=== PATIENT | female | born 1985 | race Caucasian/White ===

== ENCOUNTER 2019-02-08 10:11 | Emergency (ER) | payer BC, OTHER ==
[~2019-02-08] VITALS: Ht 165 cm; Wt 114.5 kg
[~2019-02-08 10:11] MED LIST: AMLO10TA7 PO
--- NOTE | 2019-02-08 11:21 | ED General ---
General Chief Complaint: General Problems/Pain Stated Complaint: LOWER BACK AND ABD PAIN Nursing Triage Note: PT TO RM 9 BY WHEELCHAIR WITH COMPLAINT OF LOW BACK/ ABD PAIN, DIZZINESS, VOMTING, AND DIARRHEA. STATES WENT TO URGENT CARE YESTERDAY ADN TOLD HAD POSSIBLE VIRAL ILLNESS. PT WAS ALSO PUT ON AMLODIPINE MEDICINE DUE TO HTN. Nursing Sepsis Screen: No Definite Risk Source of Information: Patient Exam Limitations: No Limitations History of Present Illness Date Seen by Provider: Feb 08, 2019 Time Seen by Provider: 11:21 Initial Comments 33-year-old female who presents to the emergency room with complaints of nausea, vomiting, diarrhea low back pain that started 2 days ago. She was seen and evaluated by urgent care in [place] yesterday and was told she had a viral illness. They also started her on amlodipine due to her hypertension. She reports that throughout the night she has had increased nausea vomiting diarr hea. She denies fevers. Timing/Duration: 2-3 Days Associated Systoms: Nausea/Vomiting Allergies and Home Medications Allergies Coded Allergies: latex (Verified Allergy, Mild, 11/02/15) orange (Verified Allergy, Mild, 11/02/15) Home Medications Amlodipine Besylate 10 Mg Tablet, 5 MG PO DAILY, (Reported) TAKES 1/2 OF A (10 MG) TABLET Ondansetron 4 Mg Tab.rapdis, 4 MG PO Q4H PRN for NAUSEA/VOMITING-1ST LINE Prescribed by: ANTONELLA FANG on 02/08/19 1321 Patient Home Medication List Home Medication List Reviewed: Yes Review of Systems Review of Systems Constitutional: see HPI; No chills, No fever Gastrointestinal: see HPI, abdominal pain, diarrhea, nausea, vomiting All Other Systems Reviewed Negative Unless Noted: Yes Past Pxnllmg-Umymcr-Gnegdi Hx Past Med/Social Hx: Reviewed Nursing Past Med/Soc Hx Patient Social History Alcohol Use: Denies Use Recreational Drug Use: No Smoking Status: Never a Smoker Recent Foreign Travel: No Contact w/Someone Who Travel: No Recent Infectious Disease Expo: No Recent Hopitalizations: No Immunizations Up To Date Tetanus Booster (TDap): Unknown PED Vaccines UTD: No Date of Influenza Vaccine: Feb 13, 2015 Seasonal Allergies Seasonal Allergies: No Past Medical History Surgeries: Yes (ERCP) Section Respiratory: No Currently Using CPAP: No Currently Using BIPAP: No Cardiac: Yes (recurrent episodes of near syncope and syncope) Hypertension Neurological: No Reproductive Disorders: Yes (HELLP syndrome) Female Reproductive Disorders: Menstrual Problems Sexually Transmitted Disease: No HIV/AIDS: No Gastrointestinal: No Musculoskeletal: No Endocrine: Yes (HASHIMOTOS) Hypothyroidsim Loss of Vision: Denies Hearing Impairment: Denies Cancer: No Psychosocial: No Integumentary: No Blood Disorders: Yes (HELLP syndrome) Adverse Reaction/Blood Tranf: No Family Medical History Reviewed Nursing Family Hx Patient reports no known family medical history. No Pertinent Family Hx Physical Exam Vital Signs Vital Signs - First Documented 02/08/19 10:14 Temp 36.7 Pulse 95 Resp 20 B/P (MAP) 142/112 (122) Pulse Ox 99 O2 Delivery Room Air Capillary Refill : Less Than 3 Seconds Height, Weight, BMI Height: 5'5.00" Weight: 234lbs. 0.0oz. 106.751827bj; 42.00 BMI Method:Stated General Appearance: No Apparent Distress, WD/WN HEENT: PERRL/EOMI, TMs Normal, Normal ENT Inspection, Pharynx Normal Neck: Full Range of Motion, Normal Inspection, Non Tender, Supple, Carotid Bruit Respiratory: Chest Non Tender, Lungs Clear, Normal Breath Sounds, No Accessory Muscle Use, No Respiratory Distress Cardiovascular: Regular Rate, Rhythm, No Edema, No Gallop, No JVD, No Murmur, Normal Peripheral Pulses Gastrointestinal: Normal Bowel Sounds, No Organomegaly, No Pulsatile Mass, Non Tender, Soft Extremity: Normal Capillary Refill Neurologic/Psychiatric: Alert, Oriented x3, Normal Mood/Affect Skin: Normal Color, Warm/Dry Progress/Results/Core Measures Suspected Sepsis Recent Fever Within 48 Hours: No Infection Criteria Present: None New/Unexplained Altered Menta: No Sepsis Screen: No Definite Risk SIRS Temperature: Pulse: 95 Respiratory Rate: 20 Laboratory Tests 02/08/19 12:08: White Blood Count 5.1 Blood Pressure 142 /112 Mean: 122 Laboratory Tests 02/08/19 12:08: Creatinine 0.73, Platelet Count 153, Total Bilirubin 0.5 Results/Orders Lab Results Laboratory Tests Test 02/08/19 10:26 02/08/19 12:08 Range/Units Urine Color MARÍA H Urine Clarity CLEAR Urine pH 6.0 5-9 Urine Specific Leopold 1.025 H 1.016-1.022 Urine Protein 1+ H NEGATIVE Urine Glucose (UA) NEGATIVE NEGATIVE Urine Ketones 1+ H NEGATIVE Urine Nitrite NEGATIVE NEGATIVE Urine Bilirubin 1+ H NEGATIVE Urine Urobilinogen 0.2 < = 1.0 MG/DL Urine Leukocyte Esterase NEGATIVE NEGATIVE Urine RBC (Auto) NEGATIVE NEGATIVE Urine RBC NONE /HPF Urine WBC 2-5 /HPF Urine Squamous Epithelial Cells 10-25 H /HPF Urine Crystals PRESENT H /LPF Urine Amorphous Sediment RARE MACHO URATES H /LPF Urine Bacteria TRACE /HPF Urine Casts NONE /LPF Urine Mucus LARGE H /LPF Urine Culture Indicated YES White Blood Count 5.1 4.3-11.0 10^3/uL Red Blood Count 4.73 4.35-5.85 10^6/uL Hemoglobin 13.2 11.5-16.0 G/DL Hematocrit 39 35-52 % Mean Corpuscular Volume 82 80-99 FL Mean Corpuscular Hemoglobin 28 25-34 PG Mean Corpuscular Hemoglobin Concent 34 32-36 G/DL Red Cell Distribution Width 13.4 10.0-14.5 % Platelet Count 153 130-400 10^3/uL Mean Platelet Volume 10.9 H 7.4-10.4 FL Neutrophils (%) (Auto) 86 H 42-75 % Lymphocytes (%) (Auto) 11 L 12-44 % Monocytes (%) (Auto) 4 0-12 % Eosinophils (%) (Auto) 0 0-10 % Basophils (%) (Auto) 0 0-10 % Neutrophils # (Auto) 4.3 1.8-7.8 X 10^3 Lymphocytes # (Auto) 0.5 L 1.0-4.0 X 10^3 Monocytes # (Auto) 0.2 0.0-1.0 X 10^3 Eosinophils # (Auto) 0.0 0.0-0.3 10^3/uL Basophils # (Auto) 0.0 0.0-0.1 10^3/uL Sodium Level 135 135-145 MMOL/L Potassium Level 2.8 L 3.6-5.0 MMOL/L Chloride Level 96 L 98-107 MMOL/L Carbon Dioxide Level 27 21-32 MMOL/L Anion Gap 12 5-14 MMOL/L Blood Urea Nitrogen 9 7-18 MG/DL Creatinine 0.73 0.60-1.30 MG/DL Estimat Glomerular Filtration Rate > 60 BUN/Creatinine Ratio 12 Glucose Level 120 H 70-105 MG/DL Calcium Level 9.2 8.5-10.1 MG/DL Corrected Calcium 9.0 8.5-10.1 MG/DL Total Bilirubin 0.5 0.1-1.0 MG/DL Aspartate Amino Transf (AST/SGOT) 34 5-34 U/L Alanine Aminotransferase (ALT/SGPT) 28 0-55 U/L Alkaline Phosphatase 69 40-136 U/L Total Protein 7.6 6.4-8.2 GM/DL Albumin 4.2 3.2-4.5 GM/DL Amylase Level 49 25-125 U/L Lipase 19 8-78 U/L My Orders Orders - ANTONELLA FANG Comprehensive Metabolic Panel (02/08/19 11:19) Lipase (02/08/19 11:19) Amylase (02/08/19 11:19) Ua Culture If Indicated (02/08/19 11:19) Ed Iv/Invasive Line Start (02/08/19 11:19) Cbc With Automated Diff (02/08/19 11:19) Ns Iv 1000 Ml (Sodium Chloride 0.9%) (02/08/19 11:30) Ondansetron Injection (Zofran Injectio (02/08/19 11:30) Urine Culture (02/08/19 10:26) Potassium Chloride (Tablet) (K Dur Table (02/08/19 13:15) Acetaminophen Tablet (Tylenol Tablet) (02/08/19 13:15) Ns Iv 1000 Ml (Sodium Chloride 0.9%) (02/08/19 13:30) Clonidine Tablet (Catapres Tablet) (02/08/19 14:15) Medications Given in ED Current Medications Medications Dose Ordered Sig/Suni Route Start Time Stop Time Status Last Admin Dose Admin Acetaminophen 1,000 mg ONCE ONCE PO 02/08/19 13:15 02/08/19 13:16 DC 02/08/19 13:16 1,000 MG Clonidine HCl 0.2 mg ONCE ONCE PO 02/08/19 14:15 02/08/19 14:16 DC 02/08/19 14:23 0.2 MG Ondansetron HCl 8 mg ONCE ONCE IVP 02/08/19 11:30 02/08/19 11:31 DC 02/08/19 13:16 8 MG Potassium Chloride 40 meq ONCE ONCE PO 02/08/19 13:15 02/08/19 13:16 DC 02/08/19 13:17 40 MEQ Vital Signs/I&O 02/08/19 15:47 Temp 36.7 Pulse 85 Resp 17 B/P (MAP) 132/78 (122) Pulse Ox 99 O2 Delivery Room Air Capillary Refill : Less Than 3 Seconds Blood Pressure Mean: 122 POS Progress Note : Time: 13:20 Progress Note I have seen and evaluated the patient. I've informed her of her laboratory findings and imaging studies. Her blood pressure has improved with the clonidine. She agrees with plan of care, plans for discharge, return precautions were given. Departure Impression Primary Impression: Viral gastroenteritis Additional Impression: Chronic hypokalemia Disposition: HOME, SELF-CARE Condition: Stable/Unchanged Departure-Patient Inst. Decision time for Depature: 13:20 Referrals: SHE SIBLEY DO (PCP/Family) Primary Care Physician Patient Instructions: High Potassium Diet, Viral Gastroenteritis, Adult (DC) Add. Discharge Instructions: Take medications as directed. Continue to use your potassium as previously prescribed by your primary care provider. You may use [id number]-uwmtuzn antidiarrheals like Imodium as directed per packaging. Drink plenty of fluids to stay hydrated. Tylenol Motrin for pain and fever. Return back to the emergency room for worsening symptoms or concerns as needed. All discharge instructions reviewed with patient and/or family. Voiced understanding. Scripts Ondansetron (Ondansetron Odt) 4 Mg Tab.rapdis 4 MG PO Q4H PRN for NAUSEA/VOMITING-1ST LINE, #14 TAB Prov: ANTONELLA FANG 02/08/19 ANTONELLA FANG Feb 08, 2019 11:21 POS
[2019-02-08] MEDS ORDERED: NS IV 1000 ML 1,000 ML IV SCH ×2 (11:30→13:30)
[2019-02-08] MEDS ORDERED: ONDANSETRON 4 MG/2 ML (SDV) Z0FRAN IVP ONE (11:30)
[2019-02-08 12:20] LABS: BASOPHILS % (AUTO) 0 % (0-10); EOSINOPHILS % (AUTO) 0 % (0-10); HEMATOCRIT 39 % (35-52); HEMOGLOBIN 13.2 G/DL (11.5-16.0); LYMPHOCYTES # (AUTO) 0.5 X 10^3 (1.0-4.0); LYMPHOCYTES % (AUTO) 11 % (12-44); MEAN CORPUSCULAR HEMOGLOBIN 28 PG (25-34); MEAN CORPUSCULAR HGB CONC 34 G/DL (32-36); MEAN CORPUSCULAR VOLUME 82 FL (80-99); MEAN PLATELET VOLUME 10.9 FL (7.4-10.4); MONOCYTES # (AUTO) 0.2 X 10^3 (0.0-1.0); MONOCYTES % (AUTO) 4 % (0-12); NEUTROPHILS # (AUTO) 4.3 X 10^3 (1.8-7.8); NEUTROPHILS % (AUTO) 86 % (42-75); PLATELET COUNT 153 10^3/uL (130-400); RED CELL DISTRIBUTION WIDTH 13.4 % (10.0-14.5); WHITE BLOOD COUNT 5.1 10^3/uL (4.3-11.0)
[2019-02-08 12:30] LABS: CLARITY,URINE CLEAR; COLOR,URINE AMBER; GLUCOSE, URINE (UA) NEGATIVE (NEGATIVE); KETONES,URINE 1+ (NEGATIVE); LEUKOCYTE ESTERASE ,URINE NEGATIVE (NEGATIVE); NITRITE,URINE NEGATIVE (NEGATIVE); PROTEIN,URINE 1+ (NEGATIVE)
[2019-02-08 12:32] LABS: ALANINE AMINOTRANSFERASE 28 U/L (0-55); ALBUMIN 4.2 GM/DL (3.2-4.5); ALKALINE PHOSPHATASE 69 U/L (40-136); AMYLASE 49 U/L (25-125); BILIRUBIN,TOTAL 0.5 MG/DL (0.1-1.0); BUN/CREATININE RATIO 12; CALCIUM 9.2 MG/DL (8.5-10.1); CARBON DIOXIDE 27 MMOL/L (21-32); CHLORIDE 96 MMOL/L (98-107); CREATININE SERUM 0.73 MG/DL (0.60-1.30); GFR ESTIMATED > 60; GLUCOSE 120 MG/DL (70-105); LIPASE 19 U/L (8-78); POTASSIUM 2.8 MMOL/L (3.6-5.0); SODIUM 135 MMOL/L (135-145); TOTAL PROTEIN 7.6 GM/DL (6.4-8.2)
[2019-02-08 13:03] LABS: BACTERIA,URINE TRACE /HPF; BILIRUBIN,URINE 1+ (NEGATIVE)
[2019-02-08 13:04] LABS: AMORPHOUS SEDIMENT,UR RARE AMOR URATES /LPF
[2019-02-08] MEDS ORDERED: ACETAMINOPHEN 500 MG TAB (TYLENOL) PO ONE (13:15)
[2019-02-08] MEDS ORDERED: KCL 20 MEQ TAB (K-DUR) PO ONE (13:15)
[2019-02-08] MEDS ORDERED: ONDA4TAB11 PO (13:21)
[2019-02-08] MEDS ORDERED: cloNIDine 0.2 MG (CATAPRES) TAB PO ONE (14:15)
[2019-02-08 15:47] VITALS: BP 132/78
--- OUTSIDE RECORDS SUMMARY | 2019-03-06 08:12 | XMS REPORT | Continuity of Care Document ---
Author Author Karma [facility] Maritza zuluaga Address Unknown Phone Unavailable Care Team Providers Care Sealer Operator Name Role Phone Ector DUFF, Pita VÁSQUEZ Unavailable Holland DUFF, Jaycee VÁSQUEZ Unavailable Debbie Benavides PP Unavailable Holland DUFF, Jaycee BUI Unavailable Ector DUFF, Pita BUI Unavailable Payers Payer name Insurance type Covered green party ID Authorization(s ) BCBS Preferred Care [place] [facility] E GP [id number] Problems Condition Effective Dates (start - stop) Clinical Status Hypothyroidism - Chronic lymphocytic thyroiditis - Fatigue / Malaise - Amenorrhea - Syncope - Syncope - Family History Family Member Diagnosis Age At Onset Status Sister SIDS Yes Paternal Grandmother Hypertension Yes Paternal Grandmother Diabetes I Yes Social History Type Description Quantity Date Unknown Allergies, Adverse Reactions, Alerts Substance Reaction Severity Status Unknown Medications Medication Instructions Dosage Effective Dates (start - stop) Sta s Comments Synthroid 50 mcg tablet take 2 tablet by oral route every day 1 00 MCG - Active Misc Drug Masterzyme 1 tab TID - Active Misc Drug Fibrovan 1 tab po TID - Active potassium 99 mg tablet take 1 Tablet by Oral route every day - Active MAGNESIUM (unknown strength) 500mg - Active Misc Drug diatomaceous earth (parasite) - Active Immunizations Vaccine Date Status Comments Unknown Results Test Name Date and Time Measure Units Reference Range Abnormal F lag Comments Unknown Vital Signs Date / Time: Height Weight BMI Pulse Rate Blood Pressure Temperatu re Respiratory Rate Body Surface Area Head Circumference BMI percentile Unknown Procedures Procedure Date ECG monitor/record, 24 hrs (holter Recording) 014 ECG monitor/review, 24 hrs Encounters Encounter Practice Location Reason(s) For Visit Diagnoses Date Unknown [facility] [place], [address] [place], [address] [facility] Unknown [facility] Marit[place], [address] [place], [address] [facility] [place] Unknown [facility] [place], [address] [place], [address] [facility] [place] Unknown [facility] Maritza margareth, [address] [place], [address] Endocrinology And Diabetes Hypothyroi dismChronic lymphocytic thyroiditisFatigue / MalaiseAmenorrhea Unknown [facility] [place], [address] [place], [address] Endocrinology And Diabetes Advance Directives Directive Yes / No Effective Date File Name Unknown WARNING:The information contained in this section is historical and is provided for information only and does not constitute a legal document or any assurance t hat the information is still accurate. Please verify the information with the ho lder of the legal document before using it for clinical purposes.
--- OUTSIDE RECORDS SUMMARY | 2019-03-06 08:12 | XMS REPORT | Continuity of Care Document ---
Author Author Karma [facility] Address Unknown Phone Unavailable Care Team Providers Care Credit Support Specialist Name Role Phone Ector DUFF, Pita VÁSQUEZ Unavailable Debbie Benavides PP Unavailable Holland DUFF, Jaycee VÁSQUEZ Unavailable Ector DUFF, Pita RP Unavailable Holland DUFF, Jaycee BUI Unavailable Payers Payer name Insurance type Covered democrat ID Authorization(s ) BCBS Preferred Care [place] [facility] E GP [id number] Problems Condition Effective Dates (start - stop) Clinical Status Hypothyroidism - Chronic lymphocytic thyroiditis - Fatigue / Malaise - Amenorrhea - Syncope - Syncope - Family History Family Member Diagnosis Age At Onset Status Sister SIDS Yes Paternal Grandmother Hypertension Yes Paternal Grandmother Diabetes I Yes Social History Type Description Quantity Date Smoking Status Never smoker packs per day Allergies, Adverse Reactions, Alerts Substance Reaction Severity Status Unknown Medications Medication Instructions Dosage Effective Dates (start - stop) Sta tu Comments Synthroid 50 mcg tablet take 2 tablet by oral route every day 1 00 MCG - Active Misc Drug diatomaceous earth (parasite) - Active MAGNESIUM (unknown strength) 500mg - Active Misc Drug Masterzyme 1 tab TID - Active Misc Drug Fibrovan 1 tab po TID - Active potassium 99 mg tablet take 1 Tablet by Oral route every day - Active Synthroid 100 mcg tablet take 1 tablet by oral route every day 100 MCG - No Longer Active Immunizations Vaccine Date Status Comments Unknown Results Test Name Date and Time Measure Units Reference Range Abnormal F lag Comments Unknown Vital Signs Date / Time: Height Weight BMI Pulse Rate Blood Pressure Temperatu re Respiratory Rate Body Surface Area Head Circumference BMI percentile /10:14:00 65.00 in 273.00 lbs 45.42 76 /min 138/90 mm[Hg] Procedures Procedure Date Office consultation Encounters Encounter Practice Location Reason(s) For Visit Diagnoses Date [facility] [facility], [address] [place], [address] Endocrinology And Diabetes (chief complaint) HypothyroidismChronic lymphocytic thyroiditisFatigue / MalaiseAmenorrhea Unknown [facility] Abena zuluaga, [address] [place], [address] [facility] [place] [facility], [address] [place], [address] [facility] [place] Unknown [facility] Abena zuluaga, [address] [place], [address] Endocrinology And Diabetes Advance Directives Directive Yes [...]
--- OUTSIDE RECORDS SUMMARY | 2019-03-06 08:12 | XMS REPORT | Continuity of Care Document ---
Author Author Karma Arzate Organization [facility] Abena zuluaga Address [address] [place] [address] Phone Care Team Providers Care Photographic Process Attendant Name Role Phone Ector DUFF, Pita VÁSQUEZ Unavailable Debbie Benavides PP Unavailable Holland DUFF, Jaycee VÁSQUEZ Unavailable Holland DUFF, Jaycee BUI Unavailable Ector DUFF, Pita BUI Unavailable Payers Payer name Insurance type Covered alliance party ID Authorization(s ) BCBS Preferred Care [place] [facility] [employer] E GP [id number] Problems Condition Effective Dates (start - stop) [...] Dosage Effective Dates (start - stop) Sta tus Comments Synthroid 50 mcg tablet take 2 [...] Circumference BMI percentile Unknown Procedures Procedure Date Unknown Encounters Encounter Practice Location Reason(s) For Visit Diagnoses Date Unknown [facility] Abena zuluaga, [address] [place], [address] Endocrinology And Diabetes Unknown [facility] Maritza [place]ulu[place], [address] [facility], [place], [address] [facility] [place] Unknown [facility] Maritza zuluaga, [address] [place], [address] [facility] [place] Unknown [facility] Maritza margareth, [address] [place], [address] Endocrinology And Diabetes Hypothyroi dismChronic lymphocytic thyroiditisFatigue / MalaiseAmenorrhea Unknown [facility] Maritza zuluaga, [address] [place], [address] Endocrinology And Diabetes Advance Directives Directive Yes [...]
--- OUTSIDE RECORDS SUMMARY | 2019-03-06 08:12 | XMS REPORT | Continuity of Care Document ---
Author Author Karma [facility]ro [facility] [place] Address Unknown Phone Unavailable Care Team Providers Care Pegger Dobby Looms Name Role Phone Ector DUFF, Pita VÁSQUEZ Unavailable Holland DUFF, Jaycee VÁSQUEZ Unavailable Debbie Benavides PP Unavailable Holland DUFF, Jaycee BUI Unavailable Ector DUFF, Pita BUI Unavailable Payers Payer name Insurance type Covered green party ID Authorization(s ) BCBS Preferred Care [place] Or [employer] E GP [id number] Problems Condition Effective Dates (start - stop) Clinical Status Hypothyroidism - Chronic lymphocytic thyroiditis - Fatigue / Malaise - Amenorrhea - Syncope - Syncope - Family History Family Member Diagnosis Age At Onset Status Sister SIDS Yes Paternal Grandmother Hypertension Yes Paternal Grandmother Diabetes I Yes Social History Type Description Quantity Date Coffee Allergies, Adverse Reactions, Alerts Substance Reaction Severity Status Unknown Medications Medication Instructions Dosage Effective Dates (start - stop) Sta tus Comments Synthroid 50 mcg tablet take 2 tablet by oral route every day 1 00 MCG - Active potassium 99 mg tablet take 1 Tablet by Oral route every day - Active Misc Drug Masterzyme 1 tab TID - Active Misc Drug Fibrovan 1 tab po TID - Active MAGNESIUM (unknown strength) 500mg - Active Misc Drug diatomaceous earth (parasite) - Active Immunizations Vaccine Date Status Comments Unknown Results Test Name Date and Time Measure Units Reference Range Abnormal F lag Comments Unknown Vital Signs Date / Time: Height Weight BMI Pulse Rate Blood Pressure Temperatu re Respiratory Rate Body Surface Area Head Circumference BMI percentile /14:55:00 65.00 in 68 /min 130/98 mm[Hg] Procedures Procedure Date OFFICE/OUTPATIENT VISIT, EST Encounters Encounter Practice Location Reason(s) For Visit Diagnoses Date OFFICE/OUTPATIENT VISIT, EST [facility], [address] [facility], [place], [address] [facility] [place] Unknown [facility] [place]aga, [address] [facility], [place], [address] [facility] [place] Unknown [facility] Mar[place] zuluaga, [address] [place], [address] Endocrinology And Diabetes Hypothyroi dismChronic lymphocytic thyroiditisFatigue / MalaiseAmenorrhea Unknown [facility] Mar[place]ulu[place], [address] [place], [address] Endocrinology And Diabetes Advance Directives Directive Yes [...]
--- OUTSIDE RECORDS SUMMARY | 2019-03-06 08:12 | XMS REPORT | Continuity of Care Document ---
Author Author Karma Lino [facility] Mar[place] zuluaga Address [address] [address] Phone Care Team Providers Care Platinum Smith Name Role Phone Ector DUFF, Pita VÁSQUEZ Unavailable Holland DUFF, Jaycee VÁSQUEZ Unavailable Holland DUFF, Jaycee BUI Unavailable Payers Payer name Insurance type Covered alliance party ID Authorization(s ) BCBS Preferred Care [place] Or [employer] E GP [id number] Problems Condition Effective Dates (start - stop) Clinical Status Syncope - Syncope - Family History Family Member Diagnosis Age At Onset Status Sister SIDS Yes Paternal Grandmother Hypertension Yes Paternal Grandmother Diabetes I Yes Social History Type Description Quantity Date Unknown Allergies, Adverse Reactions, Alerts Substance Reaction Severity Status Unknown Medications Medication Instructions Dosage Effective Dates (start - stop) Sta tus Comments Misc Drug Masterzyme 1 tab TID - Active Misc Drug Fibrovan 1 tab po TID - Active potassium 99 mg tablet take 1 Tablet by Oral route every day - Active Immunizations Vaccine Date Status Comments Unknown Results Test Name Date and Time Measure Units Reference Range Abnormal F lag Comments Unknown Vital Signs Date / Time: Height Weight BMI Pulse Rate Blood Pressure Temperatu re Respiratory Rate Body Surface Area Head Circumference BMI percentile Unknown Procedures Procedure Date Unknown Encounters Encounter Practice Location Reason(s) For Visit Diagnoses Date Unknown [facility] [place]it[place] zuluaga, [address] [place], [address] [facility] Unknown [facility] Mar[place] zuluaga, [address] [place], [address] [facility] [place] Unknown [facility] Mar[place]za zuluaga, [address] [place], [address] [facility] [place] Advance Directives Directive Yes / No Effective [...]
--- OUTSIDE RECORDS SUMMARY | 2019-03-06 08:12 | XMS REPORT | Continuity of Care Document ---
Author Author Karma Oro [facility] Maritza zuluaga Address Unknown Phone Unavailable Care Team Providers Care Dye Winch Operator Name Role Phone Ector DUFF, Pita VÁSQUEZ Unavailable Holland DUFF, Jaycee VÁSQUEZ Unavailable Debbie Benavides PP Unavailable Holland DUFF, Jaycee BUI Unavailable Ector DUFF, Pita BUI Unavailable Payers Payer name Insurance type Covered democrat ID Authorization(s ) BCBS Preferred Care [place] Or Federal E GP [id number] Problems Condition Effective Dates (start - stop) [...] (start - stop) Sta tus Comments Synthroid 100 mcg tablet take 1 tablet by oral route every day 100 MCG - Active Misc Drug Masterzyme 1 [...] Location Reason(s) For Visit Diagnoses Date Unknown [facility] Maritza zuluaga, [address] [place], [address] [facility] Unknown [facility] Maritza margareth, [address] [place], [address] [facility] [place] Unknown [facility] Maritza margareth, [address] [place], [address] [facility] [place] Unknown [facility] Maritza margareth, [address] [place], [address] Endocrinology And Diabetes Hypothyroi dismChronic lymphocytic thyroiditisFatigue / MalaiseAmenorrhea Advance Directives Directive Yes / No Effective [...]
--- OUTSIDE RECORDS SUMMARY | 2019-03-06 08:12 | XMS REPORT | Continuity of Care Document ---
Author Author Karma Oro [facility] Maritza zuluaga Address Unknown Phone Unavailable Care Team Providers Care Production Tech Name Role Phone Ector DUFF, Pita VÁSQUEZ Unavailable Jeremiah DUFF, Joann PP Unavailable Holland DUFF, Jaycee VÁSQUEZ Unavailable BenavidesDebbie weiss PP Unavailable Jeremiah DUFF, Joann RP Unavailable Holland DUFF, Jaycee BUI Unavailable Ector DUFF, Pita BUI Unavailable Payers Payer name Insurance type Covered democrat ID Authorization(s ) BCBS Preferred Care [place] Or [facility] E GP [id number] Problems Condition Effective Dates (start - stop) [...] Circumference BMI percentile Unknown Procedures Procedure Date TTE W/DOPPLER, COMPLETE Encounters Encounter Practice Location Reason(s) For Visit Diagnoses Date Unknown [facility] Maritza zuluaga, [address] [place], [address] [facility] Unknown [facility] Maritza margareth, [address] [place], [address] [facility] [place] Unknown [facility] Maritza diggscolby, [address] [place], [address] [facility] [place] Unknown [facility] Maritza zuluaga, [address] [place], [address] Endocrinology And Diabetes Hypothyroi dismChronic lymphocytic thyroiditisFatigue / MalaiseAmenorrhea Unknown [facility] Maritza margareth, [address] [place], [address] Endocrinology And Diabetes Advance Directives Directive Yes [...]
--- OUTSIDE RECORDS SUMMARY | 2019-03-06 08:12 | XMS REPORT | Continuity of Care Document ---
Author Author [facility] Organization [facility] Address Unknown Phone Unavailable Care Team Providers Care President And Chief Operating Officer Name Role Phone Pita Barney MD PCP Unavailable Allergies, Adverse Reactions, Alerts Substance Reaction Severity Status Substance Type Unknown Medications Medication Instructions Dosage Effective Dates (start - stop) Sta tus Comments Misc Drug Chaste Tree Munoz 2 caps am - Acti ve potassium 99 mg tablet take 1 Tablet by Oral route every day Not A vailable - Active Misc Drug Fibrovan 1 tab po TID - Active Synthroid 50 mcg tablet take 2 tablet by oral route every day 1 00 MCG - No Longer Active Synthroid 100 mcg tablet take 1 tablet by oral route every day 100 MCG - No Longer Active potassium 99 mg tablet - No Longer Active Misc Drug diatomaceous earth (parasite) - No Longer Active MAGNESIUM (unknown strength) 500mg - No Longer Active Misc Drug Masterzyme 1 tab TID - No Longer A ctive Problems Condition Effective Dates (start - stop) Clinical Status Unknown Procedures Procedure Date ND New Patient Office consultation OFFICE/OUTPATIENT VISIT, EST TTE W/DOPPLER, COMPLETE ECG monitor/record, 24 hrs (holter Recording) 014 ECG monitor/review, 24 hrs Office/outpatient visit, new Results Test Name Date and Time Measure Units Reference Range Abnormal F lag Comments Unknown Advance Directives Directive Yes / No Effective Date File Name Resuscitation Not Answered N/A N/A Life Support Not Answered N/A N/A Intubation Not Answered N/A N/A Antibiotics Not Answered N/A N/A IV Fluid Support Not Answered N/A N/A Tube Feed Not Answered N/A N/A CPR Not Answered N/A N/A WARNING:The information contained in this section is historical and is provided for information only and does not constitute a legal document or any assurance t hat the information is still accurate. Please verify the information with the ho lder of the legal document before using it for clinical purposes. Encounters Encounter Description Practice Location Reason(s) For Visit Diagnose s Date Provider Care Team Members [facility] Maritza zuluaga, [address] [place] [address], [address] [place] [address] Holistic Care amenorrhea* (chief complaint)subclinicial hypothyroidism (chief complaint) Chronic lymphocytic thyroiditisAmenorrhea Jonathan Childs. [address] [place] [address], [facility], . tel:[phone] Referring Provider: Naz Castillo, [address] [place] [address], [facility]. tel:[phone] [facility] Abena zuluaga, [address] [place] [address], [address] [place] [address] Endocrinology And Diabetes Kennedy Lewis. [address] [place] [address], [facility], . tel:[phone] [facility] Abena zuluaga, [address] [place] [address], [address] [place] [address] Endocrinology And Diabetes Kennedy Lewis. [address] [place] [address], [facility], . tel:[phone] Office consultation [facility] Abena zuluaga, [address] [place] [address], [facility], [facility] Endocrinology And Diabetes hypothyroidism (chief complaint) HypothyroidismChronic lymphocytic thyroi ditisAmenorrheaFatigue / Malaise Kennedy Lewis. [address] [place] [address], [facility], . tel:[phone] Referring Provider: Pita Oropeza, [address], [id number]. tel:[phone] [facility] Maritza zuluaga, [address] [place] [address], [address], [facility] Apr Holland Champion. [address] [place] [address], [address], [place], [place], [facility], . tel:[phone] OFFICE/OUTPATIENT VISIT, [facility], [address] [place] [address], [address], [facility] [place] Holland Champion. [address], [address], [place], [place], [facility], . tel:[phone] Referring Provider: Jaycee Lino MD, [address] [place] [address] [address], [place], [place], [facility]. tel:[phone] [facility] Maritza zuluaga, [address] [place] [address], [address], [facility] Apr Jeremiah David. [address] [place] [address], [address], [place], [place], [facility], . tel:[phone] Referring Provider: Joann Daniels MD, [address] [place] [address] [address], [place], [place], [facility]. tel:[phone] [facility] Maritza zuluaga, [address] [place] [address], [address], [facility] Apr Holland Champion. [address] [place] [address], [address], [place], [facility], . tel:[phone] Referring Provider: Jaycee Lino MD, [address] [place] [address] [address], [place], [place], [facility]. tel:[phone] Office/outpatient visit, new [facility], [address] [place] [address], [address], [facility] [place] Holland Champion. [address] [place] [address], [address], [place], [facility], . tel:[phone] Referring Provider: Jaycee Lino MD, [address] [place] [address], [place], [address]. tel:[phone] Family History Family Member Diagnosis Age At Onset Sister Sudden infant syndrome Paternal Grandmother Hypertension Paternal Grandmother Diabetes I Immunizations Vaccine Date Status Comments Unknown Payers Payer name Insurance type Covered constitution party ID Authorization(s ) [facility] [id number] Social History Type Description Quantity Date Captured Alcohol Use Details No Caffeine Use Details No Tobacco Use Status Unknown Smoking Status Unknown Alcohol Use Details No Caffeine Use Details No Tobacco Use Status Unknown Smoking Status Never smoker Alcohol Use Details No Caffeine Use Details Coffee and Soda Tobacco Use Status Unknown Smoking Status Never smoker Alcohol Use Details No Caffeine Use Details Coffee and Soda Tobacco Use Status Unknown Smoking Status Unknown Vital Signs Date / Time: Height Weight BMI Pulse Rate Blood Pressure Temperatu re Respiratory Rate Body Surface Area Head Circumference BMI percentile /10:37:00 65.00 in 274.40 lbs 45.66 kg/meter(2) /10:14:00 65.00 in 273.00 lbs 45.42 kg/meter(2) 76 /min 138/90 mm[Hg] /14:55:00 65.00 in 68 /min 130/98 mm[Hg] /15:06:00 65.00 in 274.20 lbs 45.80 kg/meter(2) 110 /min 138/98 mm[Hg] /15:06:00 65.00 in 274.20 lbs 45.80 kg/meter(2) 110 /min 136/98 mm[Hg] Chief Complaint And Reason For Visit Most recent encounter only, dated '07/20/2013 11:30'. amenorrhea* (chief complaint). Description: breakfast: brynn, typically doesn 't eat breakfast, frequent meal skipper, doesn't snackLMP: 07/16/13, but prior didn't have one for 3 months. Very irregular her entire menstrual life. Started menses early, thinks it might be heavy, but has nothing to compare it too. Takes a supplement for pain, that helps. Stopped control in Oct 2012, with plans of trying for . Has not been successful since. She and her are very anxious to have children, but she wants to get healthy first. subclinicial hypothyroidism (chief complaint). Description: Was dx with subclin hypo in her teens, but was never officially treated. "I never went to the doctor", but had many episodes of syncope, which prompted the blood tests. ALso has struggled with weight loss. No matter how restricted she is, weight never changes. Anorexia in college, with no change in weight. Did paleo diet x 3 months about a year ago, no change in weight. Frustrated, and now at the point where her focus isn't weight loss, but rather overall health. Went to ER after a fainting episode, hypothyroid was dx'd. Dr. Ector VAIL pressed for her to started a medication, as she thinks it is the root of all her menstrual and fainting problems. Went to see Dr. Benavides, and as put on Synthroid. After 2 weeks of taking regularly, pulled herself off becasue of a drug reaction. Significant rash scaly rash on half of face, snake like skin, heart racing, hot flashes. Discussed this with Dr. Benavides, and was told to just keep taking the medication. Didn't feel like the doctor was liste Reason For Referral Reason For Referral Unknown Plan Of Care Date Type Action Status Future Order: Lab Order T4, FREE (CPT [id number]) (86 6) Ordered Future Order: Lab Order TSH, 3RD GENERATION (CPT 44992) (899) Ordered Date Type Problem Goal Intervention Status Start D ate Unknown. History Of Present Illness Encounter Date Complaint History Of Present I llness subclinicial hypothyroidism Was dx with subclin hypo in her teens, but was never officially treated. "I never went to the doctor", but had many episodes of syncope, which prompted the blood tests. ALso has struggled with weight loss. No matter how restricted she is, weight never changes. Anorexia in college, with no change in weight. Did paleo diet x 3 months about a year ago, no change in weight. Frustrated, and now at the point where her focus isn't weight loss, but rather overall health. Went to ER after a fainting episode, hypothyroid was dx'd. OBGYN, Dr. Barney pressed for her to started a medication, as she thinks it is the root of all her menstrual and fainting problems. Went to see Dr. Benavides, and as put on Synthroid. After 2 weeks of taking regularly, pulled herself off becasue of a drug reaction. Significant rash scaly rash on half of face, snake like skin, heart racing, hot flashes. Discussed this with Dr. Benavides, and was told to just keep taking the medication. Didn't feel like the doctor was... amenorrhea* breakfast: brynn, typically doesn't eat breakfast, frequent meal skipper, doesn't snackLMP: 07/16/13, but prior didn't have one for 3 months. Very irregular her entire menstrual life. Started menses early, thinks it might be heavy, but has nothing to compare it too. Takes a supplement for pain, that helps. Stopped control in Oct 2012, with plans of trying for . Has not been successful since. She and her are very anxious to have children, but she wants to get healthy first. hypothyroidism (comments) referred to us by Dr Pita Barney for subclinical hypothyroidism, no family h/o hypothyroidiism, pls refer to scanned history sheet for detailed PMH, PSH, social and family history hypothyroidism The hypothyroidism s tarted in 2013. The symptoms began gradually. The severity has been described as being mild. It is currently a new diagnosis. Risk factors include fatigue, Hashimotos Disease and weight gain. Associated symptoms include fatigue and weight gain. Pertinent negatives include anorexia, cold intolerance, constipation, depression, dry skin, dysphagia, forgetfulness, hair loss, hoarseness, proximal muscle weakness, anxiety, diarrhea, goiter, heat intolerance, increased appetite, insomnia, palpitations, SOB, tremor and weight loss. Functional Status Encounter Date Functional Assessment Cognitive Assessme nt N/A Orientation - [place] ed to time, place, person, situation. N/A Orientation - [place] ed to time, place, person, situation. Medications Administered Medication Instructions Dosage Effective Dates (start - stop) Sta tus Comments Drug Treatment Unknown Instructions Date Instruction Additional Informati on Unknown
--- OUTSIDE RECORDS SUMMARY | 2019-03-06 08:12 | XMS REPORT | Continuity of Care Document ---
Author Author Karma Oro [facility] Maritza zuluaga Address Unknown Phone Unavailable Care Team Providers Care Fingernail Sculptor Name Role Phone Ector DUFF, Pita VÁSQUEZ Unavailable Holland DUFF, Jaycee VÁSQUEZ Unavailable Holland DUFF, Jaycee BUI Unavailable Payers Payer name Insurance type Covered republican ID Authorization(s ) BCBS Preferred Care [place] Or [facility] E GP [id number] Problems Condition Effective Dates (start - stop) [...] Body Surface Area Head Circumference BMI percentile /:06:00 65.00 in 274.20 lbs 45.80 110 /min 138/98 mm[Hg] /:06:00 65.00 in 274.20 lbs 45.80 110 /min 136/98 mm[Hg] Procedures Procedure Date Office/outpatient visit, new Encounters Encounter Practice Location Reason(s) For Visit Diagnoses Date Office/outpatient visit, [facility], [address] [place], [address] [facility] [place] Unknown [facility] Abena zuluaga, [address] [place], [address] [facility] [place] Advance Directives Directive Yes [...]
--- OUTSIDE RECORDS SUMMARY | 2019-03-06 08:13 | XMS REPORT ---
Author Author Karma DOWLING [facility] eClinicalWorks Address Unknown Phone Unavailable Care Team Providers Care Polishing Machine Operator Helper Name Role Phone CLIFTON DOWLING Unavailable Allergies No Known Allergies Problems Problem Type Condition Code Onset Dates Condition Statu s Problem General counseling for prescription of oral contracept brandi V25.01 Active Problem Screening for malignant neoplasm of the cervix V76.2 Active Problem Candidiasis of vulva and vagina 112.1 Active Assessment screening encounter Z36 Active Medications No Known Medications Procedures Procedure Coding System Code Date Office Visit, Est Pt., Level 3 CPT-4 73790 D 2014 Results No Known Results Summary Purpose eClinicalWorks Submission
--- OUTSIDE RECORDS SUMMARY | 2019-03-06 08:13 | XMS REPORT | Continuity of Care Document ---
Author Organization Unknown Address Unknown Phone Unavailable Allergies Active Description Code Type Severity Reaction Onset Reported/Identified Relationship to Patient Clinical Status Yes latex [id number] Drug Allergy Mild N/A 11/02/2015 Yes orange [id number] Drug Allergy Mild N/A 11/02/2015 Medications There is no data. Problems Date Dx Coded Attending Type Code Diagnosis Diagnosed By 02/20/2015 ADY STEEN DO Ot E66.01 02/20/2015 BRIANMERLIN ADY MONTENEGRO S Ot O99.210 02/20/2015 BRIANMERLIN DO ADY S Ot Z3A.00 02/20/2015 BRIANMERLIN MONTENEGROADY S Ot Z68.42 03/03/2015 BRIANMERLIN ADY MONTENEGRO S Ot E03.9 03/03/2015 FENMERLIN MONTENEGROADY S Ot E66.01 03/03/2015 FENECH ADY MONTENEGRO S Ot O14.23 03/03/2015 FENECH DO ADY S Ot O15.03 03/03/2015 BRIANMERLIN MONTENEGROADY S Ot O99.213 03/03/2015 BRIANECH ADY S Ot O99.283 03/03/2015 BRIANECH ADY S Ot Z3A.28 03/03/2015 BRIANMERLIN ADY MONTENEGRO S Ot Z68.42 07/13/2015 WILLY DUFF, MIRTA Grant Ot E07.9 DISORDER OF THYROID, UNSPECIFIED 07/13/2015 WILLY DUFF, MIRTA Grant Ot E87.6 HYPOKALEMIA 07/13/2015 WILLY DUFF, MIRTA Grant Ot R55 SYNCOPE AND COLLAPSE 11/03/2015 MINE OLSEN DO Ot 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 20 CALCULUS OF GALLBLADDER W/O CHOLECYSTITI 11/03/2015 MINE OLSEN DO Ot R10. 11 RIGHT UPPER QUADRANT PAIN 11/03/2015 MINE OLSEN DO Ot R11. 0 NAUSEA 11/03/2015 RAÚL MONTENEGROMINE Ot R74. 0 NONSPEC ELEV OF LEVELS OF TRANSAMNS LA 11/03[facility] OTHER DISORDERS OF BILIRUBIN METABOLISM 11/03/2015 [facility]. 20 CALCULUS OF GALLBLADDER W/O CHOLECYSTITI 11/03/2015 [facility]10. 11 RIGHT UPPER QUADRANT PAIN 11/03/2015 [facility]. 0 NAUSEA 11/03/2015 [facility] R74. 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 9 VIRAL MENINGITIS, UNSPECIFIED 02/11/2019 JEZ ELIAS MD Ot E03. 9 HYPOTHYROIDISM, UNSPECIFIED 02/11/2019 JEZ ELIAS MD Ot E06. 3 AUTOIMMUNE THYROIDITIS 02/11/2019 JEZ ELIAS MD Ot E87. 6 HYPOKALEMIA 02/11/2019 JEZ ELIAS MD Ot I10 ESSENTIAL (PRIMARY) HYPERTENSION 02/11/2019 JEZ ELIAS MD Ot R74. 0 NONSPEC ELEV OF LEVELS OF TRANSAMNS LA 02/11/2019 JEZ ELIAS MD Ot Z79.891 PRESS SETUP OPERATOR (CURRENT) USE OF OPIATE ANALGE 02/11/2019 JEZ ELIAS MD, Ot Z79.899 OTHER PRESS SETUP OPERATOR (CURRENT) DRUG THERAPY 02/11/2019 JEZ ELIAS MD Ot Z91.018 ALLERGY TO OTHER FOODS 02/11/2019 JEZ ELIAS MD Ot Z91.040 LATEX ALLERGY STATUS 02/13/2019 BERNOT, ANTONELLA Ot A08.4 VIRAL INTESTINAL INFECTION, UNSPECIFIED 02/13/2019 BERNOT, ANTONELLA Ot E03.9 HYPOTHYROIDISM, UNSPECIFIED 02/13/2019 BERNOT, ANTONELLA Ot E87.6 HYPOKALEMIA 02/13/2019 BERNOT, ANTONELLA Ot I10 ESSENTIAL (PRIMARY) HYPERTENSION 02/13/2019 BERNOT, ANTONELLA Ot R10.9 UNSPECIFIED ABDOMINAL PAIN 02/13/2019 BERNOT, NATONELLA Ot Z91.040 LATEX ALLERGY STATUS Procedures There is no data. Results Test Result Range Complete urinalysis with reflex to cultu re - 11/02/15 07:38 Urine color determination YELLOW NRG Urine clarity determination SLIGHTLY CLOUDY NRG Urine pH measurement by test strip 8 5-9 Specific gravity of urine by test strip 1.010 1.016-1.022 Urine protein assay by test strip, semi-quantitative NEGATIVE NEGATIVE Urine glucose detection by automated test strip NE GATIVE NEGATIVE Erythrocytes detection in urine sediment by light micr oscopy NEGATIVE NEGATIVE Urine ketones detection by automated test strip 1+ NEGATIVE Urine nitrite detection by test strip NEGATIVE NEGATIVE Urine total bilirubin detection by test strip NEGA TIVE NEGATIVE Urine urobilinogen measurement by automated test strip (mass/volume) NORMAL NORMAL Urine leukocyte esterase detection by dipstick 1+ NEGATIVE Automated urine sediment erythrocyte cou nt by microscopy (number/high power field) NONE NRG Automated urine sediment leukocyte count by microscopy (number/high power field) NONE NRG Bacteria detection in urine sediment by light microsco py NEGATIVE NRG Squamous epithelial cells detection in u rine sediment by light microscopy RARE NRG Crystals detection in urine sediment by light microsco py NONE NRG Casts detection in urine sediment by light microscopy NONE NRG Mucus detection in urine sediment by light microscopy NEGATIVE NRG Complete urinalysis with reflex to culture NO NRG Amorphous sediment detection in urine sediment by [facility] t microscopy LARGE MACHO PHOSPHATE NRG Complete blood count (CBC) with automate d white blood cell (WBC) differential - 11/02/15 08:25 Blood leukocytes automated count (number/volume) 12.8 10*3/uL 4.3-11.0 Blood erythrocytes automated count (number/volume) 4.95 10*6/uL 4.35-5.85 Venous blood hemoglobin measurement (mass/volume) 13.4 g/dL 11.5-16.0 Blood hematocrit (volume fraction) 40 % 35-52 Automated erythrocyte mean corpuscular volume 81 [ foz_us] 80-99 Automated erythrocyte mean corpuscular h emoglobin (mass per erythrocyte) 27 pg 25-34 Automated erythrocyte mean corpuscular h emoglobin concentration measurement (mass/volume) 33 g/dL 32-36 Automated erythrocyte distribution width ratio 14. 9 % 10.0- 14.5 Automated blood platelet count (count/volume) 310 10*3/uL 130-400 Automated blood platelet mean volume measurement 11.1 [foz_us] 7.4-10.4 Automated blood neutrophils/100 leukocytes 86 % 42-75 Automated blood lymphocytes/100 leukocytes 9 % 12-44 Blood monocytes/100 leukocytes 5 % 0-12 Automated blood eosinophils/100 leukocytes 0 % 0-10 Automated blood basophils/100 leukocytes 0 % 0-10 Blood neutrophils automated count (number/volume) 11.0 10*3 1.8-7.8 Blood lymphocytes automated count (number/volume) 1.1 10*3 1.0-4.0 Blood monocytes automated count (number/volume) 0. 6 10*3 0.0-1.0 Automated eosinophil count 0.0 10*3/uL 0 .0-0.3 Automated blood basophil count (count/volume) 0.0 10*3/uL 0.0-0.1 Comprehensive metabolic panel - 11/02/15 08:25 Serum or plasma sodium measurement (moles/volume) 140 mmol/L 135-145 Serum or plasma potassium measurement (moles/volume) 3.3 mmol/L 3.6-5.0 Serum or plasma chloride measurement (moles/volume) 104 mmol/L 98-107 Carbon dioxide 24 mmol/L 21-32 Serum or plasma anion gap determination (moles/volume) 12 mmol/L 5-14 Serum or plasma urea nitrogen measurement (mass/volume ) 10 mg/dL 7-18 Serum or plasma creatinine measurement (mass/volume) 0.74 mg/dL 0.60-1.30 Serum or plasma urea nitrogen/creatinine mass ratio 14 NRG Serum or plasma creatinine measurement w ith calculation of estimated glomerular filtration rate > NRG Serum or plasma glucose measurement (mass/volume) 174 mg/dL 70-105 Serum or plasma calcium measurement (mass/volume) 8.9 mg/dL 8.5-10.1 Serum or plasma total bilirubin measurement (mass/volu me) 1.9 mg/dL 0.1-1.0 Serum or plasma alkaline phosphatase art surement (enzymatic activity/volume) 184 U/L 40-136 Serum or plasma aspartate aminotransfera se measurement (enzymatic activity/volume) 459 U/L 5-34 Serum or plasma alanine aminotransferase measurement (enzymatic activity/volume) 318 U/L 0-55 Serum or plasma protein measurement (mass/volume) 7.6 g/dL 6.4-8.2 Serum or plasma albumin measurement (mass/volume) 4.3 g/dL 3.2-4.5 Magnesium - 11/02/15 08:25 Magnesium 2.4 mg/dL 1.8-2.4 Lipase - 11/02/15 08:25 Lipase 20 U/L 8-78 THYROID STIMULATING HORMONE - 11/02/15 0 8:25 THYROID STIMULATING HORMONE 8.04 u[iU]/mL 0.35-4.94 Serum or plasma thyroxine (T4) free davion urement (mass/volume) - 11/02/15 08:25 Serum or plasma thyroxine (T4) free measurement (mass/ volume) 0.79 ng/dL 0.70-1.48 Bilirubin direct - 11/02/15 08:25 Bilirubin direct 1.1 mg/dL 0.0-0.3 Serum or plasma C reactive protein measu rement (mass/volume) - 11/02/15 08:25 Serum or plasma C reactive protein measurement (mass/v olume) 1.17 mg/dL 0.00-0.50 Complete blood count (CBC) with automate d white blood cell (WBC) differential - 11/03/15 04:35 Blood leukocytes automated count (number/volume) 6.5 10*3/uL 4.3-11.0 Blood erythrocytes automated count (number/volume) 4.51 10*6/uL 4.35-5.85 Venous blood hemoglobin measurement (mass/volume) 12.2 g/dL 11.5-16.0 Blood hematocrit (volume fraction) 37 % 35-52 Automated erythrocyte mean corpuscular volume 82 [ foz_us] 80-99 Automated erythrocyte mean corpuscular h emoglobin (mass per erythrocyte) 27 pg 25-34 Automated erythrocyte mean corpuscular h emoglobin concentration measurement (mass/volume) 33 g/dL 32-36 Automated erythrocyte distribution width ratio 15. 1 % 10.0- 14.5 Automated blood platelet count (count/volume) 292 10*3/uL 130-400 Automated blood platelet mean volume measurement 11.2 [foz_us] 7.4-10.4 Automated blood neutrophils/100 leukocytes 56 % 42-75 Automated blood lymphocytes/100 leukocytes 34 % 12-44 Blood monocytes/100 leukocytes 7 % 0-12 Automated blood eosinophils/100 leukocytes 2 % 0-10 Automated blood basophils/100 leukocytes 1 % 0-10 Blood neutrophils automated count (number/volume) 3.6 10*3 1.8-7.8 Blood lymphocytes automated count (number/volume) 2.2 10*3 1.0-4.0 Blood monocytes automated count (number/volume) 0. 5 10*3 0.0-1.0 Automated eosinophil count 0.1 10*3/uL 0 .0-0.3 Automated blood basophil count (count/volume) 0.1 10*3/uL 0.0-0.1 Comprehensive metabolic panel - 11/03/15 04:35 Serum or plasma sodium measurement (moles/volume) 140 mmol/L 135-145 Serum or plasma potassium measurement (moles/volume) 3.2 mmol/L 3.6-5.0 Serum or plasma chloride measurement (moles/volume) 108 mmol/L 98-107 Carbon dioxide 21 mmol/L 21-32 Serum or plasma anion gap determination (moles/volume) 11 mmol/L 5-14 Serum or plasma urea nitrogen measurement (mass/volume ) 6 mg/dL 7-18 Serum or plasma creatinine measurement (mass/volume) 0.74 mg/dL 0.60-1.30 Serum or plasma urea nitrogen/creatinine mass ratio 8 NRG Serum or plasma creatinine measurement w ith calculation of estimated glomerular filtration rate > NRG Serum or plasma glucose measurement (mass/volume) 121 mg/dL 70-105 Serum or plasma calcium measurement (mass/volume) 8.7 mg/dL 8.5-10.1 Serum or plasma total bilirubin measurement (mass/volu me) 3.1 mg/dL 0.1-1.0 Serum or plasma alkaline phosphatase art surement (enzymatic activity/volume) 211 U/L 40-136 Serum or plasma aspartate aminotransfera se measurement (enzymatic activity/volume) 463 U/L 5-34 Serum or plasma alanine aminotransferase measurement (enzymatic activity/volume) 589 U/L 0-55 Serum or plasma protein measurement (mass/volume) 6.3 g/dL 6.4-8.2 Serum or plasma albumin measurement (mass/volume) 3.6 g/dL 3.2-4.5 Bilirubin direct - 11/03/15 04:35 Bilirubin direct 1.5 mg/dL 0.0-0.3 Serum or plasma C reactive protein measu rement (mass/volume) - 11/03/15 04:35 Serum or plasma C reactive protein measurement (mass/v olume) 0.90 mg/dL 0.00-0.50 Liver function panel (serum or plasma al k phos, alb, total and direct bili, total protein, ALT, AST) - 11/10/15 14:36 Serum or plasma total bilirubin measurement (mass/volu me) 0.6 mg/dL 0.1-1.0 Serum or plasma alkaline phosphatase art surement (enzymatic activity/volume) 125 U/L 40-136 Serum or plasma aspartate aminotransfera se measurement (enzymatic activity/volume) 18 U/L 5-34 Serum or plasma alanine aminotransferase measurement (enzymatic activity/volume) 55 U/L 0-55 Serum or plasma protein measurement (mass/volume) 7.1 g/dL 6.4-8.2 Serum or plasma albumin measurement (mass/volume) 4.3 g/dL 3.2-4.5 Bilirubin direct 0.3 mg/dL 0.0-0.3 Serum or plasma indirect bilirubin measurement (mass/v olume) 0.3 mg/dL NRG Serum or plasma amylase measurement (enz ymatic activity/volume) - 11/10/15 14:36 Serum or plasma amylase measurement (enzymatic activit y/volume) 55 U/L 25-125 Lipase - 11/10/15 14:36 Lipase 33 U/L 8-78 Complete urinalysis with reflex to cultu re - 02/08/19 10:26 Urine color determination MARÍA NRG Urine clarity determination CLEAR NR G Urine pH measurement by test strip 6.0 5-9 Specific gravity of urine by test strip 1.025 1.016-1.022 Urine protein assay by test strip, semi-quantitative 1+ NEGATIVE Urine glucose detection by automated test strip NE GATIVE NEGATIVE Erythrocytes detection in urine sediment by light micr oscopy NEGATIVE NEGATIVE Urine ketones detection by automated test strip 1+ NEGATIVE Urine nitrite detection by test strip NEGATIVE NEGATIVE Urine total bilirubin detection by test strip 1+ NEGATIVE Urine urobilinogen measurement by automated test strip (mass/volume) 0.2 mg/dL < = 1.0 Urine leukocyte esterase detection by dipstick NEG ATIVE NEGATIVE Automated urine sediment erythrocyte cou nt by microscopy (number/high power field) NONE NRG Automated urine sediment leukocyte count by microscopy (number/high power field) [HPF] NRG Bacteria detection in urine sediment by light microsco py TRACE NRG Squamous epithelial cells detection in u rine sediment by light microscopy 10-25 NRG Crystals detection in urine sediment by light microsco py PRESENT NRG Casts detection in urine sediment by light microscopy NONE NRG Mucus detection in urine sediment by light microscopy LARGE NRG Complete urinalysis with reflex to culture YES NRG Amorphous sediment detection in urine sediment by ligh t microscopy RARE MACHO URATES NRG Bacterial urine culture - 02/08/19 10:26 Bacterial urine culture 3 OR MORE NRG COLONY COUNT >100,000/ML NRG FTX;REPORTABLE GRAM POSITIVE ISOLATES; SUGGESTING NRG FREE TEXT ENTRY 2 PROBABLE COLLECTION CONTAMINATIO N WITH NRG FREE TEXT ENTRY 3 SKIN [place]. NO SUSCEPTIBILITY PE RFORMED. NRG Complete blood count (CBC) with automate d white blood cell (WBC) differential - 02/08/19 12:08 Blood leukocytes automated count (number/volume) 5.1 10*3/uL 4.3-11.0 Blood erythrocytes automated count (number/volume) 4.73 10*6/uL 4.35-5.85 Venous blood hemoglobin measurement (mass/volume) 13.2 g/dL 11.5-16.0 Blood hematocrit (volume fraction) 39 % 35-52 Automated erythrocyte mean corpuscular volume 82 [ foz_us] 80-99 Automated erythrocyte mean corpuscular h emoglobin (mass per erythrocyte) 28 pg 25-34 Automated erythrocyte mean corpuscular h emoglobin concentration measurement (mass/volume) 34 g/dL 32-36 Automated erythrocyte distribution width ratio 13. 4 % 10.0- 14.5 Automated blood platelet count (count/volume) 153 10*3/uL 130-400 Automated blood platelet mean volume measurement 10.9 [foz_us] 7.4-10.4 Automated blood neutrophils/100 leukocytes 86 % 42-75 Automated blood lymphocytes/100 leukocytes 11 % 12-44 Blood monocytes/100 leukocytes 4 % 0-12 Automated blood eosinophils/100 leukocytes 0 % 0-10 Automated blood basophils/100 leukocytes 0 % 0-10 Blood neutrophils automated count (number/volume) 4.3 10*3 1.8-7.8 Blood lymphocytes automated count (number/volume) 0.5 10*3 1.0-4.0 Blood monocytes automated count (number/volume) 0. 2 10*3 0.0-1.0 Automated eosinophil count 0.0 10*3/uL 0 .0-0.3 Automated blood basophil count (count/volume) 0.0 10*3/uL 0.0-0.1 Comprehensive metabolic panel - 02/08/19 12:08 Serum or plasma sodium measurement (moles/volume) 135 mmol/L 135-145 Serum or plasma potassium measurement (moles/volume) 2.8 mmol/L 3.6-5.0 Serum or plasma chloride measurement (moles/volume) 96 mmol/L 98-107 Carbon dioxide 27 mmol/L 21-32 Serum or plasma anion gap determination (moles/volume) 12 mmol/L 5-14 Serum or plasma urea nitrogen measurement (mass/volume ) 9 mg/dL 7-18 Serum or plasma creatinine measurement (mass/volume) 0.73 mg/dL 0.60-1.30 Serum or plasma urea nitrogen/creatinine mass ratio 12 NRG Serum or plasma creatinine measurement w ith calculation of estimated glomerular filtration rate > NRG Serum or plasma glucose measurement (mass/volume) 120 mg/dL 70-105 Serum or plasma calcium measurement (mass/volume) 9.2 mg/dL 8.5-10.1 Serum or plasma total bilirubin measurement (mass/volu me) 0.5 mg/dL 0.1-1.0 Serum or plasma alkaline phosphatase art surement (enzymatic activity/volume) 69 U/L 40-136 Serum or plasma aspartate aminotransfera se measurement (enzymatic activity/volume) 34 U/L 5-34 Serum or plasma alanine aminotransferase measurement (enzymatic activity/volume) 28 U/L 0-55 Serum or plasma protein measurement (mass/volume) 7.6 g/dL 6.4-8.2 Serum or plasma albumin measurement (mass/volume) 4.2 g/dL 3.2-4.5 CALCIUM CORRECTED 9.0 mg/dL 8.5-10.1 Serum or plasma amylase measurement (enz ymatic activity/volume) - 02/08/19 12:08 Serum or plasma amylase measurement (enzymatic activit y/volume) 49 U/L 25-125 Lipase - 02/08/19 12:08 Lipase 19 U/L 8-78 Complete urinalysis with reflex to cultu re - 02/09/19 13:25 Urine color determination YELLOW NRG Urine clarity determination CLEAR NR G Urine pH measurement by test strip 7.0 5-9 Specific gravity of urine by test strip <= 1.016-1.022 Urine protein assay by test strip, semi-quantitative NEGATIVE NEGATIVE Urine glucose detection by automated test strip NE GATIVE NEGATIVE Erythrocytes detection in urine sediment by light micr oscopy TRACE-I NEGATIVE Urine ketones detection by automated test strip NE GATIVE NEGATIVE Urine nitrite detection by test strip NEGATIVE NEGATIVE Urine total bilirubin detection by test strip NEGA TIVE NEGATIVE Urine urobilinogen measurement by automated test strip (mass/volume) 0.2 mg/dL < = 1.0 Urine leukocyte esterase detection by dipstick TRA CE NEGATIVE Automated urine sediment erythrocyte cou nt by microscopy (number/high power field) NONE NRG Automated urine sediment leukocyte count by microscopy (number/high power field) [HPF] NRG Bacteria detection in urine sediment by light microsco py NEGATIVE NRG Squamous epithelial cells detection in u rine sediment by light microscopy 2-5 NRG Crystals detection in urine sediment by light microsco py NONE NRG Casts detection in urine sediment by light microscopy NONE NRG Mucus detection in urine sediment by light microscopy NEGATIVE NRG Complete urinalysis with reflex to culture NO NRG Complete blood count (CBC) with automate d white blood cell (WBC) differential - 02/09/19 14:10 Blood leukocytes automated count (number/volume) 3.8 10*3/uL 4.3-11.0 Blood erythrocytes automated count (number/volume) 4.38 10*6/uL 4.35-5.85 Venous blood hemoglobin measurement (mass/volume) 12.3 g/dL 11.5-16.0 Blood hematocrit (volume fraction) 36 % 35-52 Automated erythrocyte mean corpuscular volume 83 [ foz_us] 80-99 Automated erythrocyte mean corpuscular h emoglobin (mass per erythrocyte) 28 pg 25-34 Automated erythrocyte mean corpuscular h emoglobin concentration measurement (mass/volume) 34 g/dL 32-36 Automated erythrocyte distribution width ratio 13. 4 % 10.0- 14.5 Automated blood platelet count (count/volume) 141 10*3/uL 130-400 Automated blood platelet mean volume measurement 11.6 [foz_us] 7.4-10.4 Automated blood neutrophils/100 leukocytes 58 % 42-75 Automated blood lymphocytes/100 leukocytes 34 % 12-44 Blood monocytes/100 leukocytes 6 % 0-12 Automated blood eosinophils/100 leukocytes 1 % 0-10 Automated blood basophils/100 leukocytes 1 % 0-10 Blood neutrophils automated count (number/volume) 2.2 10*3 1.8-7.8 Blood lymphocytes automated count (number/volume) 1.3 10*3 1.0-4.0 Blood monocytes automated count (number/volume) 0. 2 10*3 0.0-1.0 Automated eosinophil count 0.0 10*3/uL 0 .0-0.3 Automated blood basophil count (count/volume) 0.0 10*3/uL 0.0-0.1 Erythrocyte sedimentation rate by bernarda gren method - 02/09/19 14:10 Erythrocyte sedimentation rate by westergren method 37 mm 0- 20 Urine beta human chorionic gonadotropin (hCG) measurement - 02/09/19 14:25 Urine beta human chorionic gonadotropin (hCG) measurem ent NEGATIVE NEGATIVE Comprehensive metabolic panel - 02/09/19 15:10 Serum or plasma sodium measurement (moles/volume) 133 mmol/L 135-145 Serum or plasma potassium measurement (moles/volume) 4.7 mmol/L 3.6-5.0 Serum or plasma chloride measurement (moles/volume) 97 mmol/L 98-107 Carbon dioxide 24 mmol/L 21-32 Serum or plasma anion gap determination (moles/volume) 12 mmol/L 5-14 Serum or plasma urea nitrogen measurement (mass/volume ) 7 mg/dL 7-18 Serum or plasma creatinine measurement (mass/volume) 0.73 mg/dL 0.60-1.30 Serum or plasma urea nitrogen/creatinine mass ratio 10 NRG Serum or plasma creatinine measurement w ith calculation of estimated glomerular filtration rate > NRG Serum or plasma glucose measurement (mass/volume) 120 mg/dL 70-105 Serum or plasma calcium measurement (mass/volume) 8.8 mg/dL 8.5-10.1 Serum or plasma total bilirubin measurement (mass/volu me) 0.4 mg/dL 0.1-1.0 Serum or plasma alkaline phosphatase art surement (enzymatic activity/volume) 59 U/L 40-136 Serum or plasma aspartate aminotransfera se measurement (enzymatic activity/volume) 73 U/L 5-34 Serum or plasma alanine aminotransferase measurement (enzymatic activity/volume) 28 U/L 0-55 Serum or plasma protein measurement (mass/volume) 7.8 g/dL 6.4-8.2 Serum or plasma albumin measurement (mass/volume) 3.9 g/dL 3.2-4.5 CALCIUM CORRECTED 8.9 mg/dL 8.5-10.1 Comprehensive metabolic panel - 02/09/19 15:10 Serum or plasma sodium measurement (moles/volume) 136 mmol/L 135-145 Serum or plasma potassium measurement (moles/volume) 2.6 mmol/L 3.6-5.0 Serum or plasma chloride measurement (moles/volume) 98 mmol/L 98-107 Carbon dioxide 24 mmol/L 21-32 Serum or plasma anion gap determination (moles/volume) 14 mmol/L 5-14 Serum or plasma urea nitrogen measurement (mass/volume ) 7 mg/dL 7-18 Serum or plasma creatinine measurement (mass/volume) 0.73 mg/dL 0.60-1.30 Serum or plasma urea nitrogen/creatinine mass ratio 10 NRG Serum or plasma creatinine measurement w ith calculation of estimated glomerular filtration rate > NRG Serum or plasma glucose measurement (mass/volume) 111 mg/dL 70-105 Serum or plasma calcium measurement (mass/volume) 9.1 mg/dL 8.5-10.1 Serum or plasma total bilirubin measurement (mass/volu me) 0.4 mg/dL 0.1-1.0 Serum or plasma alkaline phosphatase art surement (enzymatic activity/volume) 62 U/L 40-136 Serum or plasma aspartate aminotransfera se measurement (enzymatic activity/volume) 26 U/L 5-34 Serum or plasma alanine aminotransferase measurement (enzymatic activity/volume) 23 U/L 0-55 Serum or plasma protein measurement (mass/volume) 6.9 g/dL 6.4-8.2 Serum or plasma albumin measurement (mass/volume) 4.1 g/dL 3.2-4.5 CALCIUM CORRECTED 9.0 mg/dL 8.5-10.1 Cerebrospinal fluid cell count - 9 16:50 Cerebrospinal fluid appearance description CLEAR NRG Cerebrospinal fluid color identification COLORLESS NRG Cerebrospinal fluid leukocytes count (number/volume) 24 % 0- 5 Cerebrospinal fluid erythrocytes count (number/volume) 3 % 0-0 Manual cerebrospinal fluid lymphocytes/100 leukocytes 72 % NRG Manual cerebrospinal fluid mononuclear cells/100 leuko cytes 18 % NRG Manual cerebrospinal fluid polymorphonuclear cells/100 leukocytes 10 % NRG Cerebrospinal fluid cell count on specimen from last t ube collected 4 NRG Cerebrospinal fluid glucose measurement (mass/volume) - 02/09/19 16:50 Cerebrospinal fluid glucose measurement (mass/volume) 61 mg/dL 50-80 Cerebrospinal fluid protein measurement (mass/volume) - 02/09/19 16:50 Cerebrospinal fluid protein measurement (mass/volume) 76 mg/dL 15-40 Gram stain microscopy - 02/09/19 16:50 Bacterial cerebrospinal fluid culture - 02/09/19 16:50 Bacterial cerebrospinal fluid culture NG NRG Complete blood count (CBC) with automate d white blood cell (WBC) differential - 02/10/19 04:26 Blood leukocytes automated count (number/volume) 4.0 10*3/uL 4.3-11.0 Blood erythrocytes automated count (number/volume) 4.03 10*6/uL 4.35-5.85 Venous blood hemoglobin measurement (mass/volume) 11.1 g/dL 11.5-16.0 Blood hematocrit (volume fraction) 33 % 35-52 Automated erythrocyte mean corpuscular volume 81 [ foz_us] 80-99 Automated erythrocyte mean corpuscular h emoglobin (mass per erythrocyte) 28 pg 25-34 Automated erythrocyte mean corpuscular h emoglobin concentration measurement (mass/volume) 34 g/dL 32-36 Automated erythrocyte distribution width ratio 13. 5 % 10.0- 14.5 Automated blood platelet count (count/volume) 131 10*3/uL 130-400 Automated blood platelet mean volume measurement 11.2 [foz_us] 7.4-10.4 Automated blood neutrophils/100 leukocytes 68 % 42-75 Automated blood lymphocytes/100 leukocytes 25 % 12-44 Blood monocytes/100 leukocytes 7 % 0-12 Automated blood eosinophils/100 leukocytes 1 % 0-10 Automated blood basophils/100 leukocytes 0 % 0-10 Blood neutrophils automated count (number/volume) 2.7 10*3 1.8-7.8 Blood lymphocytes automated count (number/volume) 1.0 10*3 1.0-4.0 Blood monocytes automated count (number/volume) 0. 3 10*3 0.0-1.0 Automated eosinophil count 0.0 10*3/uL 0 .0-0.3 Automated blood basophil count (count/volume) 0.0 10*3/uL 0.0-0.1 Comprehensive metabolic panel - 02/10/19 04:26 Serum or plasma sodium measurement (moles/volume) 136 mmol/L 135-145 Serum or plasma potassium measurement (moles/volume) 2.8 mmol/L 3.6-5.0 Serum or plasma chloride measurement (moles/volume) 101 mmol/L 98-107 Carbon dioxide 23 mmol/L 21-32 Serum or plasma anion gap determination (moles/volume) 12 mmol/L 5-14 Serum or plasma urea nitrogen measurement (mass/volume ) 7 mg/dL 7-18 Serum or plasma creatinine measurement (mass/volume) 0.63 mg/dL 0.60-1.30 Serum or plasma urea nitrogen/creatinine mass ratio 11 NRG Serum or plasma creatinine measurement w ith calculation of estimated glomerular filtration rate > NRG Serum or plasma glucose measurement (mass/volume) 114 mg/dL 70-105 Serum or plasma calcium measurement (mass/volume) 8.2 mg/dL 8.5-10.1 Serum or plasma total bilirubin measurement (mass/volu me) 0.3 mg/dL 0.1-1.0 Serum or plasma alkaline phosphatase art surement (enzymatic activity/volume) 58 U/L 40-136 Serum or plasma aspartate aminotransfera se measurement (enzymatic activity/volume) 21 U/L 5-34 Serum or plasma alanine aminotransferase measurement (enzymatic activity/volume) 16 U/L 0-55 Serum or plasma protein measurement (mass/volume) 6.3 g/dL 6.4-8.2 Serum or plasma albumin measurement (mass/volume) 3.6 g/dL 3.2-4.5 CALCIUM CORRECTED 8.5 mg/dL 8.5-10.1 Erythrocyte sedimentation rate by bernarda gren method - 02/10/19 04:26 Erythrocyte sedimentation rate by westergren method 40 mm 0- 20 Automated blood complete blood count (he mogram) panel - 02/11/19 04:12 Blood leukocytes automated count (number/volume) 5.0 10*3/uL 4.3-11.0 Blood erythrocytes automated count (number/volume) 4.17 10*6/uL 4.35-5.85 Venous blood hemoglobin measurement (mass/volume) 11.3 g/dL 11.5-16.0 Blood hematocrit (volume fraction) 34 % 35-52 Automated erythrocyte mean corpuscular volume 83 [ foz_us] 80-99 Automated erythrocyte mean corpuscular h emoglobin (mass per erythrocyte) 27 pg 25-34 Automated erythrocyte mean corpuscular h emoglobin concentration measurement (mass/volume) 33 g/dL 32-36 Automated erythrocyte distribution width ratio 13. 6 % 10.0- 14.5 Automated blood platelet count (count/volume) 168 10*3/uL 130-400 Automated blood platelet mean volume measurement 11.4 [foz_us] 7.4-10.4 Whole blood basic metabolic panel - 10/23 04:12 Serum or plasma sodium measurement (moles/volume) 137 mmol/L 135-145 Serum or plasma potassium measurement (moles/volume) 3.0 mmol/L 3.6-5.0 Serum or plasma chloride measurement (moles/volume) 101 mmol/L 98-107 Carbon dioxide 24 mmol/L 21-32 Serum or plasma anion gap determination (moles/volume) 12 mmol/L 5-14 Serum or plasma urea nitrogen measurement (mass/volume ) 8 mg/dL 7-18 Serum or plasma creatinine measurement (mass/volume) 0.66 mg/dL 0.60-1.30 Serum or plasma urea nitrogen/creatinine mass ratio 12 NRG Serum or plasma creatinine measurement w ith calculation of estimated glomerular filtration rate > NRG Serum or plasma glucose measurement (mass/volume) 91 mg/dL 70-105 Serum or plasma calcium measurement (mass/volume) 8.8 mg/dL 8.5-10.1 Magnesium - 02/11/19 04:12 Magnesium 1.7 mg/dL 1.6-2.4 Encounters ACCT No. Visit Date/Time Discharge Status Pt. Type Provider Facility Loc./Unit Complaint [id number] 02/09/2019 18:00:00 019 11:45:00 DIS Inpatient CURT DUFF, JEZ [place] Via [facility] 4TH HYPERTENSION,HEADACHE [id number] 02/08/2019 10:13:00 15:47:00 DIS Emergency ANTONELLA FANG [facility] ER LOWER BACK AND ABD PAIN [id number] 11/10/2015 14:22:00 016 23:59:59 CLS Outpatient MARTI DUFF, [place] [facility] LAB K83.1 OBSTRUCTION OF BI LE DUCT [id number] 11/02/2015 11:05:00 016 12:55:00 DIS Inpatient MINE OLSEN DO [facility] 4TH RUQ PAIN,NAUSEA,ELEV TRANSAMINASES/BILI [id number] 07/13/2015 18:59:00 016 20:57:00 DIS Emergency WILLY DUFF, MIRTA Grant [facility] ER POSS SEIZURE [id number] 03/03/2015 16:51:00 20:40:00 DIS Outpatient ADY STEEN DO [facility] WSo [id number] 01/29/2015 14:49:00 23:59:59 CLS Outpatient ADY STEEN DO [facility] BRIAN 10/201611/03/2016 15:24:40 11/03/2016 23:59 :59 [facility] Outpatient
--- OUTSIDE RECORDS SUMMARY | 2019-03-06 08:13 | XMS REPORT ---
Author Author Karma Thornton Doctor Organization [facility] Address Unknown Phone Unavailable Care Team Providers Care Information Systems Security Developer Name Role Phone Migration, Doctor Unavailable Unavailable PROBLEMS Type Condition ICD9-CM Code PUU78-EV Code Onset Dates Condition S tatus SNOMED Code Problem General counseling for prescription of oral contraceptives V25.01 Active 293008821609590 Problem Candidiasis of vulva and vagina 112.1 Active [id number] Problem Screening for malignant neoplasm of the cervix V76.2 Active [id number] ALLERGIES No Information ENCOUNTERS Encounter Location Date Diagnosis [facility] [address] [facility] [id number] [address] [place] [phone] 11 Feb, 2015 screening encounter Z36 [place] [address] [place] [id number] [address] [place] [phone] 14 Jun, 2014 [facility] [address] [facility] [id number] [address] [place] [phone] 13 Jun, 2014 [place] [address] [address] [place] [id number] [address] [place] [phone] Nov, [facility] [address] [facility] [id number] [address] [place] [phone] Sep, IMMUNIZATIONS No Known Immunizations SOCIAL HISTORY Never Assessed REASON FOR VISIT [facility] [place] PLAN OF CARE VITAL SIGNS MEDICATIONS Unknown Medications RESULTS No Results PROCEDURES No Known procedures INSTRUCTIONS MEDICATIONS ADMINISTERED No Known Medications
--- OUTSIDE RECORDS SUMMARY | 2019-03-06 08:13 | XMS REPORT | Continuity of Care Document ---
Author Author [employer] Organization [employer] Address Unknown Phone Unavailable Care Team Providers Care Admissions Supervisor Name Role Phone [employer] Unavailable Unavailable Problems Problem Status Onset Date Classification Date Reported Comments Source SYNCOPE AND COLLAPSE [facility] NONSPECIFIC (ABNORMAL) FINDINGS ON RADIO Active [facility]/27[facility] Problem 06/23/[address] [facility] Syncope Active [facility] NextGen Medications Medication Details Route Status Patient Instructions Ordering Provider Order Date Source Misc Drug Chaste Tree Munoz 2 caps am Active 07/20/[address] [facility] potassium 99 mg tablet ORAL Active 07/20/[address] [facility] MAGNESIUM (unknown strength) 5 00mg ORAL Active 07/20/[address] [facility] Levothyroxine Sodium 0.05 MG Oral Tablet take 2 tablet by oral route every day ORAL Active 06/01/[address] [facility] Levothyroxine Sodium 0.1 MG Oral Tablet take 1 tablet by oral route every day ORAL Active 05/25/2013 [facility] potassium 99 mg tablet take 1 Tablet by Oral route every day ORAL Active [facility] Misc Drug Fibrovan 1 tab po TID Active [facility] Allergies, Adverse Reactions, Alerts No Known Medication Allergies Immunizations No Data Provided for This Section Results No Data Provided for This Section Pathology Reports No Data Provided for This Section Diagnostic Reports No Data Provided for This Section Consultation Notes Results Value Date Source Progress Note Encounter DateCo mplaintHistory Of Present Illness subclinicial hypothyroidism Was dx with subclin hypo [...] feel like the doctor was... amenorrhea* breakfast: burrito, typically doesn't eat breakfast, frequent meal skipper, doesn't snack LMP: 07/16/13, but prior didn't have one for [...] social and family history hypothyroidism The hypothyroidism started in 2013. The symptoms began gradually. The [...] insomnia, palpitations, SOB, tremor and weight loss. 07/20/[address] [facility] Discharge Summaries No Data Provided for This Section History and Physicals No Data Provided for This Section Vital Signs Vital Sign Value Date Comments Source Body height 65.00 [in_us] 07/20/2013 [facility] Body Weight (Measured) 274.40 [lb_av] 07/20/2013 [facility] Body mass index 45.66 kg/meter (2) 07/20/2013 [facility] Body height 65.00 [in_us] 05/25/2013 [facility] Body Weight (Measured) 273.00 [lb_av] 05/25/2013 [facility] Intravascular Systolic 138 mm[ Hg] 05/25/2013 [facility] Intrav[facility] Diastolic 90 mm[ Hg] 05/25[facility] Heart Beat 76 /min 05/25/2013 [facility] roup Body mass index 45.42 kg/meter (2) 05[facility]25/2013 [facility] Body height 65.00 [in_us] 05/01/2013 [facility] Intravascular Systolic 130 mm[ Hg] 05/01/2013 [facility] Intravascular Diastolic 98 mm[ Hg] 05/01/2013 [facility] Heart Beat 68 /min 05/01/2013 [facility] Body height 65.00 [in_us] 04/19/2013 [facility] Body Weight (Measured) 274.20 [lb_av] 04/19/2013 [facility] Intravascular Systolic 138 mm[ Hg] 04/19/2013 [facility] Intravascular Diastolic 98 mm[ Hg] 04/19/2013 [facility] Heart Beat 110 /min 04/19/2013 [facility] Body mass index 45.80 kg/meter (2) 04/19/2013 [facility] Encounters Location Location Details Encounter Type Encounter Number Reason For Visit Attending Provider ADM Date DC Date Status Source [facility] [id number] _MAPID:Encounter_0 Naz Booker ck 07/20/2013 07/20/[address] [facility] SM Endocrinology And Diabetes [id number] Debbie Benavides 06/08/2013 06/08/[address] [facility] Endocrinology And Diabetes [id number] Debbie Benavides 05/28/2013 05/28/[address] [facility] Endocrinology And Diabetes [id number] _MAPID:Encounter_3 Dbebie Pa tel 05/25/2013 05/25/[address] [facility] Maritza zuluaga [facility] [id number] Jaycee Lino MD 05/03/2013 05/03/[address] [facility] [id number] Jaycee Lino MD 05/01/2013 05/01/[address] [facility] 006 [id number] EMELIA LINO MD 04/27/2013 04/27/2013 Active [facility] [id number] Joann Daniels MD 04/27/2013 04/27/[address] [facility] [id number] Jaycee Lino MD 04/26/2013 04/26/[address] [facility] [id number] Jaycee Lino MD 04/19/2013 04/19/[address] [facility] Procedures Procedure Code Date Perfomer Comments Source ND New Patient 07/20/[address] [facility] Office consultation 05/25/[address] [facility] OFFICE/OUTPATIENT VISIT, EST 05/01/[address] [facility] ECG monitor/review, 24 hrs 04/30/[address] [facility] TTE W/DOPPLER, COMPLETE 04/27/2013 [facility] monitor/record, 24 hrs (holter Recording) 04/26/2013 [facility] Office/outpatient visit, new 04/19/2013 [facility] Plan of Care Plan of Care Date Source DateTypeActionStatus Future Order: Lab Order T4, FREE (CPT [id number]) (866) Ordered Future Order: Lab Order TSH, 3RD GENERATION (CPT 70720) (899) Ordered DateTypeProblemGoalInterventionStatusStart Date Unknown. 07/20/2013 [facility] Social History Social History Date Source TypeDescriptionQuantityDate Captured Alcohol Use Details No Caffeine Use [...] Tobacco Use Status Unknown Smoking Status Unknown 07/20/2013 [facility] Assessment and Plan No Data Provided for This Section Family History Value Date S ource Family MemberDiagnosisAge At Onset Sister Sudden infant syndrome Paternal Grandmother Hypertension Paternal Grandmother Diabetes I 07/20/[address] [facility] Advance Directives No Data Provided for This Section Functional Status No Data Provided for This Section
--- OUTSIDE RECORDS SUMMARY | 2019-03-06 08:13 | XMS REPORT ---
Author Author Karma Thornton Doctor Organization [facility] Address Unknown Phone Unavailable Care Team Providers Care Head Sampler Name Role Phone Migration, Doctor Unavailable Unavailable PROBLEMS Type Condition ICD9-CM Code GIL19-[place] Code Onset Dates Condition S tatus SNOMED Code Problem General counseling for prescription of oral contraceptives V25.01 Active 714286109392089 Problem Candidiasis of vulva and vagina 112.1 Active 42515221 Problem Screening for malignant neoplasm of the cervix V76.2 Active 838831841 ALLERGIES Substance Reaction Event Type Date Status Latex Unknown Non Drug Allergy Jun, Active ENCOUNTERS Encounter Location Date Diagnosis [place] [address] [facility] [id number] [address] [place] [phone] Feb, screening encounter Z36 [place] [address] [address] [facility] [id number] [address] [place] [phone] 14 Jun, 2014 [facility] [address] [place] [id number] [address] [place] [phone] Jun, [place] [address] [facility] [id number] [address] [place] [phone] Nov, [facility] [address] [facility] [id number] [address] [place] [phone] Sep, IMMUNIZATIONS No Known Immunizations SOCIAL HISTORY Never Assessed REAS[facility] FOR VISIT [facility] VITAL SIGNS MEDICATIONS Medication Instructions Dosage Frequency Start Date End Date Duration S tatus Diflucan 150 mg take 1 tablet by Oral route once 1 11 J 2011 Active RESULTS No Results PROCEDURES No Known procedures INSTRUCTIONS MEDICATIONS ADMINISTERED No Known Medications
== END 2019-02-08 15:47 | disposition home or self-care (01) ==
LOC: EDUNIT# 10:11 → ER 10:13
DX: A08.4 Viral intestinal infection, unspecified (principal); E87.6 Hypokalemia; I10 Essential (primary) hypertension; E03.9 Hypothyroidism, unspecified; Z91.040 Latex allergy status
CPT/HCPCS: 36415; 80053; 81000; 82150; 83690; 84703; 85025; 87088; 96361; 96374

== ENCOUNTER 2019-02-09 12:11 | Observation (INO) | payer OTHER ==
[~2019-02-09] VITALS: Ht 165.1 cm; Wt 112.0 kg
[~2019-02-09 12:11] MED LIST changes: +ONDA4TAB11 PO
[2019-02-09] MEDS ORDERED: NS IV 1000 ML 1,000 ML IV SCH (14:15)
[2019-02-09 14:18] LABS: BILIRUBIN,URINE NEGATIVE (NEGATIVE); CLARITY,URINE CLEAR; COLOR,URINE YELLOW; GLUCOSE, URINE (UA) NEGATIVE (NEGATIVE); KETONES,URINE NEGATIVE (NEGATIVE); LEUKOCYTE ESTERASE ,URINE TRACE (NEGATIVE); NITRITE,URINE NEGATIVE (NEGATIVE); PROTEIN,URINE NEGATIVE (NEGATIVE)
--- NOTE | 2019-02-09 14:19 | ED Headache ---
General Chief Complaint: Cardiac/General Problems Stated Complaint: HIGH BLOOD PRESSURE/VOMITING/FEVER Nursing Triage Note: PATIENT WAS HERE YESTERDAY, STATES THAT SHE IS NTO ANY BETTER AND BLOOD PRESSURE CONTINUES TO BE 160S/100S. THEY CALLED DR SIBLEY AND WAS INSTRUCTED TO COME HERE. Nursing Sepsis Screen: No Definite Risk Source: patient, family History of Present Illness Date Seen by Provider: Feb 09, 2019 Time Seen by Provider: 14:16 Initial Comments This 33-year-old white female presents with complaint of high blood pressure, vomiting, and fever that has been present for the last several days. The patient has been evaluated here in the emergency department as well as urgent care several times since the onset of her present illness. No definite etiology has been forthcoming. It has been suggested she has a viral illness. Allergies and Home Medications Allergies Coded Allergies: latex (Verified Allergy, Mild, 11/02/15) orange (Verified Allergy, Mild, 11/02/15) Home Medications Amlodipine Besylate 10 Mg Tablet, 5 MG PO DAILY, (Reported) TAKES 1/2 OF A (10 MG) TABLET Ondansetron 4 Mg Tab.rapdis, 4 MG PO Q4H PRN for NAUSEA/VOMITING-1ST LINE Prescribed by: ANTONELLA FANG on 02/08/19 1321 Patient Home Medication List Home Medication List Reviewed: Yes Review of Systems Review of Systems Constitutional: fever, malaise Eyes: Denies Blindness, Denies Pain Ears, Nose, Mouth, Throat: denies ear pain, denies nose pain, denies epistaxis Respiratory: No cough Cardiovascular: see HPI Gastrointestinal: No abdominal pain, No diarrhea; nausea, vomiting Genitourinary: no symptoms reported Musculoskeletal: no symptoms reported Skin: no symptoms reported Psychiatric/Neurological: No Symptoms Reported Past Kpathes-Wqnhls-Vgrdhf Hx Past Med/Social Hx: Reviewed Nursing Past Med/Soc Hx Patient Social History Alcohol Use: Denies Use Recreational Drug Use: No Smoking Status: Never a Smoker 2nd Hand Smoke Exposure: No Recent Foreign Travel: No Contact w/Someone Who Travel: No Recent Infectious Disease Expo: No Recent Hopitalizations: No Immunizations Up To Date Tetanus Booster (TDap): Unknown PED Vaccines UTD: No Date of Influenza Vaccine: Feb 13, 2015 Seasonal Allergies Seasonal Allergies: No Past Medical History Surgeries: Yes (ERCP) Section Respiratory: No Currently Using CPAP: No Currently Using BIPAP: No Cardiac: Yes (recurrent episodes of near syncope and syncope) Hypertension Neurological: No Reproductive Disorders: Yes (HELLP syndrome) Female Reproductive Disorders: Menstrual Problems Sexually Transmitted Disease: No HIV/AIDS: No Genitourinary: No Gastrointestinal: No Musculoskeletal: No Endocrine: Yes (HASHIMOTOS) Hypothyroidsim HEENT: No Loss of Vision: Denies Hearing Impairment: Denies Cancer: No Psychosocial: No Integumentary: No Blood Disorders: Yes (HELLP syndrome) Adverse Reaction/Blood Tranf: No Family Medical History Patient reports no known family medical history. No Pertinent Family Hx Physical Exam Vital Signs Vital Signs - First Documented 02/09/19 13:19 Temp 36.8 Pulse 83 Resp 20 B/P (MAP) 151/104 (120) Pulse Ox 100 Capillary Refill : Less Than 3 Seconds Height, Weight, BMI Height: 5'5.00" Weight: 234lbs. 0.0oz. 106.982283lk; 41.00 BMI Method:Stated General Appearance: WD/WN, mild distress HEENT: normal ENT inspection Neck: full range of motion Cardiovascular: regular rate, rhythm Respiratory: lungs clear Gastrointestinal: normal bowel sounds Back: normal inspection Extremities: normal range of motion, non-tender Psychiatric: alert, oriented x 3 Crainal Nerves: normal hearing, normal speech Motor/Sensory: no motor deficit, no sensory deficit Skin: normal color, warm/dry Progress/Results/Core Measures Results/Orders Lab Results Laboratory Tests Test 02/09/19 13:25 02/09/19 14:10 02/09/19 14:25 02/09/19 15:10 Range/Units Urine Color YELLOW Urine Clarity CLEAR Urine pH 7.0 5-9 Urine Specific Oakes <=1.005 1.016-1.022 Urine Protein NEGATIVE NEGATIVE Urine Glucose (UA) NEGATIVE NEGATIVE Urine Ketones NEGATIVE NEGATIVE Urine Nitrite NEGATIVE NEGATIVE Urine Bilirubin NEGATIVE NEGATIVE Urine Urobilinogen 0.2 < = 1.0 MG/DL Urine Leukocyte Esterase TRACE NEGATIVE Urine RBC (Auto) TRACE-I NEGATIVE Urine RBC NONE /HPF Urine WBC 2-5 /HPF Urine Squamous Epithelial Cells 2-5 /HPF Urine Crystals NONE /LPF Urine Bacteria NEGATIVE /HPF Urine Casts NONE /LPF Urine Mucus NEGATIVE /LPF Urine Culture Indicated NO White Blood Count 3.8 L 4.3-11.0 10^3/uL Red Blood Count 4.38 4.35-5.85 10^6/uL Hemoglobin 12.3 11.5-16.0 G/DL Hematocrit 36 35-52 % Mean Corpuscular Volume 83 80-99 FL Mean Corpuscular Hemoglobin 28 25-34 PG Mean Corpuscular Hemoglobin Concent 34 32-36 G/DL Red Cell Distribution Width 13.4 10.0-14.5 % Platelet Count 141 130-400 10^3/uL Mean Platelet Volume 11.6 H 7.4-10.4 FL Neutrophils (%) (Auto) 58 42-75 % Lymphocytes (%) (Auto) 34 12-44 % Monocytes (%) (Auto) 6 0-12 % Eosinophils (%) (Auto) 1 0-10 % Basophils (%) (Auto) 1 0-10 % Neutrophils # (Auto) 2.2 1.8-7.8 X 10^3 Lymphocytes # (Auto) 1.3 1.0-4.0 X 10^3 Monocytes # (Auto) 0.2 0.0-1.0 X 10^3 Eosinophils # (Auto) 0.0 0.0-0.3 10^3/uL Basophils # (Auto) 0.0 0.0-0.1 10^3/uL Erythrocyte Sedimentation Rate 37 H 0-20 MM/HR Urine Test NEGATIVE NEGATIVE Sodium Level 136 135-145 MMOL/L Potassium Level 2.6 L 3.6-5.0 MMOL/L Chloride Level 98 98-107 MMOL/L Carbon Dioxide Level 24 21-32 MMOL/L Anion Gap 14 5-14 MMOL/L Blood Urea Nitrogen 7 7-18 MG/DL Creatinine 0.73 0.60-1.30 MG/DL Estimat Glomerular Filtration Rate > 60 BUN/Creatinine Ratio 10 Glucose Level 111 H 70-105 MG/DL Calcium Level 9.1 8.5-10.1 MG/DL Corrected Calcium 9.0 8.5-10.1 MG/DL Total Bilirubin 0.4 0.1-1.0 MG/DL Aspartate Amino Transf (AST/SGOT) 26 5-34 U/L Alanine Aminotransferase (ALT/SGPT) 23 0-55 U/L Alkaline Phosphatase 62 40-136 U/L Total Protein 6.9 6.4-8.2 GM/DL Albumin 4.1 3.2-4.5 GM/DL Test 02/09/19 16:50 Range/Units CSF Tube Number 4 CSF Appearance CLEAR CSF Color COLORLESS CSF WBC 24 H 0-5 CELLS CSF RBC 3 H 0-0 CELLS CSF Glucose 61 50-80 MG/DL CSF Total Protein 76 H 15-40 MG/DL My Orders Orders - ALBINA MANZANARES MD Cbc With Automated Diff (02/09/19 14:08) Ua Culture If Indicated (02/09/19 14:08) Hcg,Qualitative Urine (02/09/19 14:08) Erythrocyte Sedimentation Rate (02/09/19 14:08) Ct Head Wo (02/09/19 14:08) Chest 1 View, Ap/Pa Only (02/09/19 14:08) Ekg Tracing (02/09/19 14:08) Ns Iv 1000 Ml (Sodium Chloride 0.9%) (02/09/19 14:15) Labetalol Injection (Normodyne Injection (02/09/19 14:45) Comprehensive Metabolic Panel (02/09/19 15:10) Lidocaine 1% Inj 20 Ml (Xylocaine 1% Inj (02/09/19 15:56) Fentanyl Injection (Sublimaze Injection (02/09/19 16:15) Labetalol Injection (Normodyne Injection (02/09/19 17:00) Ibuprofen Tablet (Motrin Tablet) (02/09/19 17:15) Csf Culture (02/09/19 17:39) Csf Cell Count (02/09/19 17:39) Csf Glucose (02/09/19 17:39) Csf Standard Panel (02/09/19 17:39) Csf Total Protein (02/09/19 17:39) Hydromorphone Injection (Dilaudid Inject (02/09/19 17:45) Clonidine Tablet (Catapres Tablet) (02/09/19 18:00) Medications Given in ED Current Medications Medications Dose Ordered Sig/Suni Route Start Time Stop Time Status Last Admin Dose Admin Clonidine HCl 0.2 mg ONCE ONCE PO 02/09/19 18:00 02/09/19 18:01 DC 02/09/19 18:01 0.2 MG Fentanyl Citrate 50 mcg ONCE ONCE IVP 02/09/19 16:15 02/09/19 16:16 DC 02/09/19 16:30 50 MCG Hydromorphone HCl 1 mg ONCE ONCE IV 02/09/19 17:45 02/09/19 17:47 DC 02/09/19 18:02 1 MG Ibuprofen 800 mg ONCE ONCE PO 02/09/19 17:15 02/09/19 17:16 DC 02/09/19 17:22 800 MG Labetalol HCl 20 mg ONCE ONCE IV 02/09/19 14:45 02/09/19 14:46 DC 02/09/19 14:48 20 MG Labetalol HCl 20 mg ONCE ONCE IV 02/09/19 17:00 02/09/19 17:06 DC 02/09/19 17:09 20 MG Lidocaine HCl 20 ml STK-MED ONCE .ROUTE 02/09/19 15:56 02/09/19 16:00 DC 02/09/19 16:15 5 ML Vital Signs/I&O 02/09/19 13:19 Temp 36.8 Pulse 83 Resp 20 B/P (MAP) 151/104 (120) Pulse Ox 100 Blood Pressure Mean: 120 POS Progress Progress Note : Time: 18:38 Progress Note Patient had a spelled performed which demonstrated 21 white cells and elevated protein and a single gram-positive organism. The patient was covered with 2 g Rocephin IV and admitted to Dr. Manrique. The patient's blood pressure was ultimately controlled with clonidine 0.2 mg. The patient's severe headache was ultimately treated with a milligram of Dilaudid IV. At time of admission the patient was comfortable. I explained the results of the laboratory and radiographic findings to her. He was transferred to floor in stable condition. Departure Communication (Admissions) Time/Spoke to Admitting Phy: 18:41 Dr. Manrique. Impression Primary Impression: Head ache Qualified Codes: R51 - Headache Additional Impression: Viral meningitis Disposition: 09 ADMITTED INPATIENT Condition: Improved Admissions Decision to Admit Reason: Admit from ER (General) Decision to Admit/Date: Feb 09, 2019 Time/Decision to Admit Time: 18:43 Departure-Patient Inst. Referrals: SHE SIBLEY DO (PCP/Family) Primary Care Physician ALBINA MANZANARES MD Feb 09, 2019 14:19 POS
[2019-02-09 14:22] LABS: BASOPHILS % (AUTO) 1 % (0-10); EOSINOPHILS % (AUTO) 1 % (0-10); HEMATOCRIT 36 % (35-52); HEMOGLOBIN 12.3 G/DL (11.5-16.0); LYMPHOCYTES # (AUTO) 1.3 X 10^3 (1.0-4.0); LYMPHOCYTES % (AUTO) 34 % (12-44); MEAN CORPUSCULAR HEMOGLOBIN 28 PG (25-34); MEAN CORPUSCULAR HGB CONC 34 G/DL (32-36); MEAN CORPUSCULAR VOLUME 83 FL (80-99); MEAN PLATELET VOLUME 11.6 FL (7.4-10.4); MONOCYTES # (AUTO) 0.2 X 10^3 (0.0-1.0); MONOCYTES % (AUTO) 6 % (0-12); NEUTROPHILS # (AUTO) 2.2 X 10^3 (1.8-7.8); NEUTROPHILS % (AUTO) 58 % (42-75); PLATELET COUNT 141 10^3/uL (130-400); RED CELL DISTRIBUTION WIDTH 13.4 % (10.0-14.5); WHITE BLOOD COUNT 3.8 10^3/uL (4.3-11.0)
[2019-02-09 14:30] LABS: BACTERIA,URINE NEGATIVE /HPF
[2019-02-09] MEDS ORDERED: LABETALOL HCL 20 MG/4 ML VIAL IV ONE ×3 (14:30→17:00)
[2019-02-09] MEDS ORDERED: APIXABAN 5 MG (ELIQUIS) TABLET PO ONE (14:30)
--- NOTE | 2019-02-09 14:49 | Diagnostic Imaging Report ---
INDICATION: Hypertension, fever, rash x1 week. TECHNIQUE: Single view chest 2:49 PM. CORRELATION STUDY: None FINDINGS: The heart size, mediastinal configuration and pulmonary vascularity are within normal limits. The lungs are clear with no consolidating infiltrate. There is no significant effusion or pneumothorax. IMPRESSION: 1. Negative for acute abnormality of the chest. Dictated by: Dictated on workstation # [id number]
--- NOTE | 2019-02-09 14:57 | Diagnostic Imaging Report ---
PROCEDURE: CT head without contrast. TECHNIQUE: Multiple contiguous axial images were obtained through the brain without the use of intravenous contrast. Auto Exposure Controls were utilized during the CT exam to meet ALARA standards for radiation dose reduction. INDICATION: Hypertension. FINDINGS: There is no hemorrhage, hydrocephalus, edema, mass, mass effect, or evidence for elevation of intracranial pressures. The basilar cisterns are patent. There is no sulcal effacement. Orbits, sinuses, and calvarium appear within normal limits. IMPRESSION: Normal CT head. Dictated by: Dictated on workstation # [id number]
[2019-02-09 15:12] LABS: ERYTHROCYTE SEDIMENTATION RATE 37 MM/HR (0-20)
[2019-02-09 15:45] LABS: ALANINE AMINOTRANSFERASE 23 U/L (0-55); ALBUMIN 4.1 GM/DL (3.2-4.5); ALKALINE PHOSPHATASE 62 U/L (40-136); BILIRUBIN,TOTAL 0.4 MG/DL (0.1-1.0); BUN/CREATININE RATIO 10; CALCIUM 9.1 MG/DL (8.5-10.1); CARBON DIOXIDE 24 MMOL/L (21-32); CHLORIDE 98 MMOL/L (98-107); CREATININE SERUM 0.73 MG/DL (0.60-1.30); GFR ESTIMATED > 60; GLUCOSE 111 MG/DL (70-105); POTASSIUM 2.6 MMOL/L (3.6-5.0); SODIUM 136 MMOL/L (135-145); TOTAL PROTEIN 6.9 GM/DL (6.4-8.2)
[2019-02-09] MEDS ORDERED: LIDOCAINE 1% INJ 20 ML 20 ML VIAL ONE (15:56)
[2019-02-09] MEDS ORDERED: fentaNYL INJECTION 100 MCG/2 ML AMP IVP ONE (16:15)
--- NOTE | 2019-02-09 16:15 | NUR ---
ATTEMPT LUMBAR PUNCTURE BY DR MANZANARES
--- NOTE | 2019-02-09 16:34 | NUR ---
CONSENT FOR LUMBAR PUNCTURE SIGNED
--- NOTE | 2019-02-09 16:36 | NUR ---
ANESTHESIA HERE FOR LUMBAR PUNCTURE
[2019-02-09] MEDS ORDERED: IBUPROFEN 800 MG (MOTRIN) TAB PO ONE (17:15)
--- NOTE | 2019-02-09 17:18 | NUR ---
TEMP 101.2
--- NOTE | 2019-02-09 17:30 | Anesthesia-Procedure Note ---
Procedures/Interventions Procedure Start/Stop/Diagnosis Date of Procedure: Feb 09, 2019 Start Time: 16:45 Stop Time: 17:15 Lumbar Puncture Discussed Risk,Benefits: Yes Patient Consents: Yes Position: L3-4, Sitting Sterile Technique: Yes Opening Pressure: N/A Fluid Color: clear Spinal Needle Used: 22g Bhavin 3 1/2 inch ANTONY BANG CRNA Feb 09, 2019 17:30 POS
[2019-02-09] MEDS ORDERED: HYDROmorphone 2 MG/ML VIAL (DILAUDID) IV ONE (17:45)
[2019-02-09] MEDS ORDERED: cloNIDine 0.2 MG (CATAPRES) TAB PO ONE (18:00)
[2019-02-09 18:05] LABS: CSF TOTAL PROTEIN 76 MG/DL (15-40)
[2019-02-09 18:06] LABS: APPEARANCE,CSF CLEAR; COLOR,CSF COLORLESS; CSF GLUCOSE 61 MG/DL (50-80); CSF TUBE NUMBER 4; RED BLOOD CELL,CSF 3 CELLS (0-0); WHITE BLOOD CELL,CSF 24 CELLS (0-5)
--- NOTE | 2019-02-09 18:06 | NUR ---
CURRENT B/P 153/82
[2019-02-09] MEDS ORDERED: cefTRIAXone FOR IV USE 2,000 MG in WATER (STERILE) FOR INJECTION 20 ML IV ONE (18:15)
[2019-02-09 18:54] LABS: LYMPHOCYTES,CSF 72 %
[2019-02-09 19:41] VITALS: BP 127/81
[2019-02-09] MEDS ORDERED: CATHETER FLUSH 10 ML SYR IV PRN (20:30)
[2019-02-09] MEDS: NS IV 1000 ML 1,000 ML IV SCH (21:09)
[2019-02-09] MEDS: HYDROmorphone 2 MG/ML VIAL (DILAUDID) IV PRN (23:25)
[2019-02-09] MEDS: ONDANSETRON 4 MG/2 ML (SDV) Z0FRAN IV PRN (23:25)
[2019-02-09 23:37] VITALS: BP 150/90
[2019-02-10 03:00] VITALS: BP 165/101
[2019-02-10] MEDS: HYDROmorphone 2 MG/ML VIAL (DILAUDID) IV PRN ×2 (03:14→23:35)
--- NOTE | 2019-02-10 03:19 | NUR ---
CURT NOTIFIED VIA PHONE OF PT INCREASE BP 165/101. ORDER OBTAINED FOR CLONIDINE 0.2MG X1 NOW. ORDERS FOR PO PAIN MEDICATION, AND TORADOL IV OBTAINED TO HELP WITH PAIN CONTROL.
[2019-02-10] MEDS ORDERED: cloNIDine 0.2 MG (CATAPRES) TAB PO ONE (03:30)
[2019-02-10] MEDS: HYDROcodone/APAP 5 MG/325 MG (LORTAB) TAB PO PRN ×4 (03:33→23:35)
[2019-02-10] MEDS: KETOROLAC 15 MG/ML VIAL IVP PRN ×3 (03:33→18:50)
[2019-02-10 04:19] VITALS: BP 156/91
[2019-02-10 04:54] LABS: BASOPHILS % (AUTO) 0 % (0-10); EOSINOPHILS % (AUTO) 1 % (0-10); HEMATOCRIT 33 % (35-52); HEMOGLOBIN 11.1 G/DL (11.5-16.0); LYMPHOCYTES % (AUTO) 25 % (12-44); MEAN CORPUSCULAR HEMOGLOBIN 28 PG (25-34); MEAN CORPUSCULAR HGB CONC 34 G/DL (32-36); MEAN CORPUSCULAR VOLUME 81 FL (80-99); MEAN PLATELET VOLUME 11.2 FL (7.4-10.4); MONOCYTES # (AUTO) 0.3 X 10^3 (0.0-1.0); MONOCYTES % (AUTO) 7 % (0-12); NEUTROPHILS # (AUTO) 2.7 X 10^3 (1.8-7.8); NEUTROPHILS % (AUTO) 68 % (42-75); PLATELET COUNT 131 10^3/uL (130-400); RED CELL DISTRIBUTION WIDTH 13.5 % (10.0-14.5)
[2019-02-10 05:14] LABS: ALANINE AMINOTRANSFERASE 16 U/L (0-55); ALBUMIN 3.6 GM/DL (3.2-4.5); ALKALINE PHOSPHATASE 58 U/L (40-136); BILIRUBIN,TOTAL 0.3 MG/DL (0.1-1.0); BUN/CREATININE RATIO 11; CALCIUM 8.2 MG/DL (8.5-10.1); CARBON DIOXIDE 23 MMOL/L (21-32); CHLORIDE 101 MMOL/L (98-107); CREATININE SERUM 0.63 MG/DL (0.60-1.30); GFR ESTIMATED > 60; GLUCOSE 114 MG/DL (70-105); POTASSIUM 2.8 MMOL/L (3.6-5.0); SODIUM 136 MMOL/L (135-145); TOTAL PROTEIN 6.3 GM/DL (6.4-8.2)
[2019-02-10 06:10] LABS: ERYTHROCYTE SEDIMENTATION RATE 40 MM/HR (0-20)
[2019-02-10 08:00] VITALS: BP 148/80
--- NOTE | 2019-02-10 09:27 | History & Physical-Hospitalist ---
[facility] 02/10/19 0927: History of Present Illness HPI/Chief Complaint Karma Costa is 33 y/o female that presented to [facility] due to N/V, and fevers. The symptoms started last Tuesday and she presented to urgent care and it was suspected to be viral in nature. She states she was sweating her bed every night and had pain in the back of the neck with a sharp pain in the frontal region that she described at home to be 9/10. Currently it is a 1/10. She cannot think of anything that helped make it better and states that just recently she did have eye pain when there was light present. She cannot remember any sick contacts with similar symtoms and states that her son did have RSV recently. Both head CT and Chest x-ray were normal. Source: patient Date Seen 02/10/19 Time Seen by a Provider: 09:27 Attending Physician Jez Manrique MD PCP Ligia Marcos DO Referring Physician Date of Admission Feb 09, 2019 at 18:00 Home Medications & Allergies Home Medications Reviewed patient Home Medication Reconciliation performed by pharmacy medication reconciliations time study technician and/or nursing. Patients Allergies have been reviewed. Allergies Allergies Coded Allergies latex (Verified Allergy, Mild, 11/02/15) orange (Verified Allergy, Mild, 11/02/15) Pt stated she is allergic to levothyroxine. Has a rash Past Hrnwrzw-Knerbz-Utjrms Hx Past Med/Social Hx: Reviewed Nursing Past Med/Soc Hx Patient Social History Marrital Status: Number of Children: 1 Alcohol Use: Denies Use Recreational Drug Use: No Smoking Status: Never a Smoker 2nd Hand Smoke Exposure: No Recent Foreign Travel: No Contact w/other who traveled: No Recent Hopitalizations: No Recent Infectious Disease Expo: Yes (son - RSV - month ago) Immunizations Up To Date Tetanus Booster (TDap): Unknown Pediatric: No Date of Influenza Vaccine: Feb 13, 2015 Seasonal Allergies Seasonal Allergies: No Past Medical History Surgeries: Section Currently Using CPAP: No Currently Using BIPAP: No Cardiac: Hypertension : No Reproductive: Yes (HELLP syndrome) Sexually Transmitted Disease: No HIV/AIDS: No Female Reproductive Disorders: Menstrual Problems Endocrine: Hypothyroidsim Loss of Vision: Denies Hearing Impairment: Denies History of Blood Disorders: Yes (HELLP syndrome) Adverse Reaction to Blood Hernandez: No Family History Patient reports no known family medical history. No Pertinent Family Hx Review of Systems Constitutional: No dizziness, No fever, No weakness EENTM: eye pain (noticed with the light but has been improving ) Respiratory: no symptoms reported Cardiovascular: no symptoms reported Gastrointestinal: no symptoms reported Musculoskeletal: joint pain, neck pain Skin: rash (Mottling rash on body ) Psychiatric/Neurological: No Symptoms Reported Physical Exam Physical Exam Vital Signs Vital Signs - First Documented 02/09/19 13:19 Temp 36.8 Pulse 83 Resp 20 B/P (MAP) 151/104 (120) Pulse Ox 100 Capillary Refill : Less Than 3 Seconds Height, Weight, BMI Height: 5'5.00" Weight: 234lbs. 0.0oz. 106.967806im; 41.08 BMI Method:Stated General Appearance: No Apparent Distress, WD/WN Eyes: Bilateral Eye PERRL, Bilateral Eye EOMI HEENT: PERRL/EOMI, Normal ENT Inspection, Moist Mucous Membranes Neck: Supple, Other (Tender posteriorly ) Respiratory: Chest Non Tender, Lungs Clear, Normal Breath Sounds, No Accessory Muscle Use, No Respiratory Distress Cardiovascular: Regular Rate, Rhythm, No Edema, No Murmur, Normal Peripheral Pulses Gastrointestinal: Normal Bowel Sounds, No Organomegaly, No Pulsatile Mass, Non Tender, Soft Extremity: Normal Capillary Refill, No Calf Tenderness, No Pedal Edema Neurologic/Psychiatric: Alert, Oriented x3, Normal Mood/Affect, rehabilitation aide/scheduler II-XII Norm as Tested Skin: Normal Color, Warm/Dry Lymphatic: No Adenopathy Results Results/Procedures Labs Laboratory Tests 02/09/19 14:10 02/09/19 15:10 02/10/19 04:26 Patient resulted labs reviewed. Assessment/Plan Admission Diagnosis Meningitis Assessment and Plan Viral Meningitis - symptomatic treatment - Acetaminophen for fevers PRN - Maintenance fluids - Consider influenza test N/V - antiemetic PRN - patient is tolerating liquids and diet at this time Hypokalemia - potassium chloride - repeat labs to recheck - patient seems asymptomatic at this point will continue to monitor - consider ECG if worsens Hypothyroidism - continue home medications HTN - continue clonidine as needed. Patient denies HTN at home. Clinical Quality Measures DVT/VTE Risk/Contraindication: Risk Factor Score Per Nursin RFS Level Per Nursing on Admit: 2=Moderate JEZ MANRIQUE MD 02/11/19 1331: Past Azwmcpq-Zllayf-Udeytx Hx Family History Patient reports no known family medical history. Assessment/Plan Admission Diagnosis Admission Status: Inpatient Order (span 2 midnights) Reason for Inpatient Admission: admitted for monitoring of likely viral mengitis. will await cultures to ensure negative x48 hours before discharge Assessment and Plan Admitted for likely viral meningitis. Symptomatic for 4-5 days period to admission and failed outpatient management. CSF cell count consistent with viral meningitis and clinically well appearing. low likelihood of bacterial meningitis but will await culture results prior to discharge. BP labile but within goal on clonidine so will trend. Will replace potassium today. Discussed plan with p atient and (over the phone) and answered all questions. Diagnosis/Problems Diagnosis/Problems (1) Viral meningitis Status: Acute (2) Head ache Status: Acute Qualifiers: Headache type: unspecified Headache chronicity pattern: acute headache Intractability: not intractable Qualified Codes: R51 - Headache (3) HTN (hypertension) (4) Hypokalemia Status: Acute (5) Thyroid dysfunction Status: Acute (6) Elevated transaminase level Status: Acute Supervisory-Addendum Brief Verification & Attestation Participated in pt care: history, MDM, physical Personally performed: exam, history, MDM, supervision of care Care discussed with: Medical Student Procedures: n/a Results interpretation: Verified all documentation Verification and Attestation of Medical Student E/M Service A medical student performed and documented this service in my presence. I reviewed and verified all information documented by the medical student and made modifications to such information, when appropriate. I personally performed the physical exam and medical decision making. Jez Manrique, Feb 11, 2019,13:33 [facility] Feb 10, 2019 09:27 JEZ RODRÍGUEZ MD Feb 11, 2019 13:31 POS
[2019-02-10] MEDS: cloNIDine 0.2 MG (CATAPRES) TAB PO SCH ×2 (09:58→20:52)
[2019-02-10] MEDS: ONDANSETRON 4 MG/2 ML (SDV) Z0FRAN IV PRN (10:10)
[2019-02-10 11:17] VITALS: BP 131/72
[2019-02-10] MEDS: NS IV 1000 ML 1,000 ML IV SCH (12:20)
[2019-02-10] MEDS: POTASSIUM CL 10MEQ/50ML IVPB 50 ML IV SCH ×4 (12:20→15:54)
[2019-02-10 16:00] VITALS: BP 143/76
[2019-02-10 20:00] VITALS: BP 144/94
[2019-02-11] VITALS: BP 162/103
[2019-02-11 04:00] VITALS: BP 156/72
[2019-02-11 04:59] LABS: HEMOGLOBIN 11.3 G/DL (11.5-16.0); MEAN PLATELET VOLUME 11.4 FL (7.4-10.4); RED CELL DISTRIBUTION WIDTH 13.6 % (10.0-14.5)
[2019-02-11 05:16] LABS: BUN/CREATININE RATIO 12; CALCIUM 8.8 MG/DL (8.5-10.1); CARBON DIOXIDE 24 MMOL/L (21-32); CHLORIDE 101 MMOL/L (98-107); CREATININE SERUM 0.66 MG/DL (0.60-1.30); GFR ESTIMATED > 60; GLUCOSE 91 MG/DL (70-105); SODIUM 137 MMOL/L (135-145)
[2019-02-11 07:41] VITALS: BP 162/102
[2019-02-11 08:22] VITALS: BP 140/90
[2019-02-11] MEDS ORDERED: KCL 10 MEQ TAB (MICRO K) PO NR (10:15)
[2019-02-11] MEDS ORDERED: HYDR-4226 PO (10:18)
[2019-02-11] MEDS: cloNIDine 0.2 MG (CATAPRES) TAB PO SCH (10:34)
--- NOTE | 2019-02-11 11:30 | NUR ---
DH=155/98. DR. RHOADES NOTIFIED AND STATED FOR PT. TO TAKE HER BLOOD PRESSURE HOME MED WHEN SHE GETS HOME. INSTRUCTED PT. TO CALL HER PCP IN THE MORNING AND MAKE AN APPOINTMENT SOON POSSIBLE.
[2019-02-11 11:31] VITALS: BP 158/98
--- NOTE | 2019-02-11 11:40 | Discharge Summary ---
Discharge Summary Hospital Course Final Diagnosis: Viral meningitis Hospital Course Date of Admission: Feb 09, 2019 at 18:00 Admission Diagnosis : Viral meningitis Family Physician/Provider: Ligia Marcos DO Date of Discharge: 02/11/19 Discharge Diagnosis: Viral meningitis Hospital Course: Karma Costa is a 33-year-old female who presented with headache and neck stiffness and was admitted with viral meningitis. She underwent lumbar puncture which revealed mildly elevated white blood cell count and the Gram stain and culture revealed no organisms. She was treated with supportive care and her symptoms improved prior to discharge. She recently had a newly diagnosed hypertension and should continue her amlodipine. She should follow-up with Dr. Marcos within a week. Labs and Pending Lab Test: Laboratory Tests 02/11/19 04:12: White Blood Count 5.0, Red Blood Count 4.17L, Hemoglobin 11.3L, Hematocrit 34L, Mean Corpuscular Volume 83, Mean Corpuscular Hemoglobin 27, Mean Corpuscular Hemoglobin Concent 33, Red Cell Distribution Width 13.6, Platelet Count 168, Mean Platelet Volume 11.4H, Sodium Level 137, Potassium Level 3.0L, Chloride Level 101, Carbon Dioxide Level 24, Anion Gap 12, Blood Urea Nitrogen 8, Creatinine 0.66, Estimat Glomerular Filtration Rate > 60, BUN/Creatinine Ratio 12, Glucose Level 91, Calcium Level 8.8, Magnesium Level 1.7 Microbiology 02/09/19 Gram Stain - Final, Resulted 02/09/19 CSF Culture - Preliminary, Resulted No growth Home Meds Active Bassett 5-325 Tablet (Hydrocodone/Acetaminophen) 1 Each Tablet 1 Tab PO Q4-6HR MDD 10 TABS 5 Days Ondansetron Odt (Ondansetron) 4 Mg Tab.rapdis 4 Mg PO Q4H PRN Reported Amlodipine Besylate 10 Mg Tablet 5 Mg PO DAILY TAKES 1/2 OF A (10 MG) TABLET Assessment/Pt Instructions Take medications as prescribed. Follow up with your primary care doctor. Return with worsening headache, neck stiffness, fevers, or if you feel like you are getting worse. Discharge Instructions Discharge Diet: No Restrictions, Regular Diet Activity as Tolerated: Yes Discharge Physical Examination General Appearance: Alert, Oriented X3, Cooperative, No Acute Distress HEENT: Atraumatic, PERRLA, EOMI, Mucous Memb Moist/[place] Respiratory: Clear to Auscultation, Normal Air Movement Cardiovascular: Regular Rate, Normal S1, Normal S2, No Murmurs Abdominal: Normal Bowel Sounds, Soft, No Tenderness Extremities: No Edema, No Tenderness/Swelling Skin: No Rashes, No Significant Lesion Neuro: Normal Speech Psych/Mental Status: Mental Status NL, Mood NL Allergies: Coded Allergies: latex (Verified Allergy, Mild, 11/02/15) orange (Verified Allergy, Mild, 11/02/15) Copy Copies To 1: LIGIA MARCOS DO Discharge Summary Date of Admission Feb 09, 2019 at 18:00 Date of Discharge Discharge Date: Feb 11, 2019 Discharge Time: 11:40 Admission Diagnosis Meningitis Discharge Diagnosis (1) Viral meningitis Status: Acute Clinical Quality Measures DVT/VTE Risk/Contraindication: Risk Factor Score Per Nursin RFS Level Per Nursing on Admit: 2=Moderate ANGELA RHOADES MD Feb 11, 2019 11:40 POS
[2019-02-11 11:45] VITALS: BP 158/98
--- NOTE | 2019-02-11 11:45 | NUR ---
ZENOBIA HARRIS demonstrates understanding of discharge instructions and accurately returns instructions upon questioning. Copy of Post-Discharge Instructions given to PT. ZENOBIA HARRIS is able to manage continuing needs after discharge. Patients belongings returned to PT. Patient discharged from [facility]- on 02/11/19 at 1145. ZENOBIA HARRIS left floor via W/C, accompanied by STAFF AND FAMILY PER AUTO.
--- OUTSIDE RECORDS SUMMARY | 2019-03-08 06:05 | XMS REPORT | Continuity of Care Document ---
Author Organization Unknown Address Unknown Phone Unavailable Allergies Active Description Code Type Severity Reaction Onset Reported/Identified Relationship to Patient Clinical Status Yes latex [id number] Drug Allergy Mild N/A 11/02/2015 Yes orange [id number] Drug Allergy Mild N/A 11/02/2015 Medications There is no data. Problems Date Dx Coded Attending Type Code Diagnosis Diagnosed By 02/20/2015 ADY STEEN DO Ot E66.01 02/20/2015 BRIANMERLIN MONTENEGROADY S Ot O99.210 02/20/2015 BRIANMERLIN DO ADY S Ot Z3A.00 02/20/2015 BRIANMERLIN MONTENEGROADY S Ot Z68.42 03/03/2015 BRIANMERLIN ADY MONTENEGRO S Ot E03.9 03/03/2015 BRIANMERLIN MONTENEGROADY S Ot E66.01 03/03/2015 FENECH ADY MONTENEGRO S Ot O14.23 03/03/2015 FENECH ADY S Ot O15.03 03/03/2015 BRIANMERLIN MONTENEGRO ADY S Ot O99.213 03/03/2015 BRIANMERLIN MONTENEGROADY S Ot O99.283 03/03/2015 BRIANMERLIN MONTENEGRO ADY S Ot Z3A.28 03/03/2015 BRIANMERLIN ADY [...] ELEV OF LEVELS OF TRANSAMNS LA [facility]03[facility] 6 OTHER DISORDERS OF BILIRUBIN METABOLISM 11/03/2015 [facility] K80. 20 CALCULUS OF GALLBLADDER W/O CHOLECYSTITI 11/03/2015 [facility] R10. 11 RIGHT UPPER QUADRANT PAIN 11/03/2015 [facility] R11. 0 NAUSEA 11/03/2015 [facility] R74. 0 NONSPEC ELEV OF LEVELS [...] LA 02/11/2019 JEZ ELIAS MD Ot Z79.891 REPAIR MILLER (CURRENT) USE OF OPIATE ANALGE 02/11/2019 JEZ ELIAS MD Ot Z79.899 OTHER REPAIR MILLER (CURRENT) DRUG THERAPY 02/11/2019 JEZ ELIAS MD Ot Z91.018 ALLERGY TO OTHER FOODS 02/11/2019 JEZ ELIAS MD Ot Z91.040 LATEX ALLERGY STATUS 02/11/2019 JEZ ELIAS MD Ot A87. 9 VIRAL MENINGITIS, UNSPECIFIED 02/11/2019 JEZ ELIAS MD Ot E03. 9 HYPOTHYROIDISM, UNSPECIFIED 02/11/2019 JEZ ELIAS MD Ot E06. 3 AUTOIMMUNE THYROIDITIS 02/11/2019 JEZ ELIAS MD Ot E87. 6 HYPOKALEMIA 02/11/2019 JEZ ELIAS MD Ot I10 ESSENTIAL (PRIMARY) HYPERTENSION 02/11/2019 JEZ ELIAS MD Ot R74. 0 NONSPEC ELEV OF LEVELS OF TRANSAMNS LA 02/11/2019 JEZ ELIAS MD Ot Z79.891 REPAIR MILLER (CURRENT) USE OF OPIATE ANALGE 02/11/2019 JEZ ELIAS MD Ot Z79.899 OTHER REPAIR MILLER (CURRENT) DRUG THERAPY 02/11/2019 JEZ ELIAS MD Ot Z91.018 ALLERGY TO OTHER FOODS 02/11/2019 JEZ ELIAS MD Ot Z91.040 LATEX ALLERGY STATUS 02/13/2019 BERNOT, ANTONELLA Ot A08.4 VIRAL INTESTINAL INFECTION, UNSPECIFIED 02/13/2019 BERNOT, ANTONELLA Ot E03.9 HYPOTHYROIDISM, UNSPECIFIED 02/13/2019 BERNOT, ANTONELLA Ot E87.6 HYPOKALEMIA 02/13/2019 BERNOT, ANTONELLA Ot I10 ESSENTIAL (PRIMARY) HYPERTENSION 02/13/2019 BERNOT, ANTONELLA Ot R10.9 UNSPECIFIED ABDOMINAL PAIN 02/13/2019 BERNOT, ANTONELLA Ot Z91.040 LATEX ALLERGY STATUS Procedures There [...] in urine sediment by ligh t microscopy LARGE MACHO PHOSPHATE NRG Complete [...] Status Pt. Type Provider Facility Loc./Unit Complaint [id number] 02/09/2019 18:00:00 11:45:00 DIS Inpatient CURT DUFF, JE[place] [facility] 4TH HYPERTENSION,HEADACHE [id number] 02/08/2019 10:13:00 15:47:00 DIS Emergency ANTONELLA FANG [facility] ER LOWER BACK AND ABD PAIN [id number] 11/10/2015 14:22:00 016 23:59:59 CLS Outpatient MARTI DUFF, [place] [facility] LAB K83.1 OBSTRUCTION OF BI LE DUCT [id number] 11/02/2015 11:05:00 016 12:55:00 DIS Inpatient MINE OLSEN DO [facility] 4TH RUQ PAIN,NAUSEA,ELEV TRANSAMINASES/BILI [id number] 07/13/2015 18:59:00 016 20:57:00 DIS Emergency WILLY DUFF, MIRTA Grant [facility] ER POSS SEIZURE [id number] 03/03/2015 16:51:00 20:40:00 DIS Outpatient ADY STEEN DO [facility] WSo [id number] 01/29/2015 14:49:00 015 23:59:59 CLS Outpatient ADY STEEN DO [facility] RAD 10/201611/03/2016 15:24:40 11/03/2016 23:59 :59 CLS Outpatient
--- OUTSIDE RECORDS SUMMARY | 2019-03-08 06:05 | XMS REPORT | Continuity of Care Document ---
Author Author [employer] Organization [employer] Address Unknown Phone Unavailable Care Team Providers Care Licensed [employer] Real [employer] Appraiser Name Role Phone [employer] Unavailable Unavailable Problems Problem Status Onset Date Classification Date Reported Comments Source SYNCOPE AND COLLAPSE [facility] NONSPECIFIC (ABNORMAL) FINDINGS ON RADIO Active 04/27/2013 [facility] [place] Problem 06/23/2015 [facility] Syncope Active [facility] Medications Medication Details Route Status Patient Instructions Ordering Provider Order Date Source Misc Drug Chaste Tree Munoz 2 caps am Active 07/20/2013 [facility] potassium 99 mg tablet ORAL Active 07/20/2013 [facility] MAGNESIUM (unknown strength) 5 00mg ORAL Active 07/20/2013 [facility] Levothyroxine Sodium 0.05 MG Oral Tablet take 2 tablet by oral route every day ORAL Active 06/01/2013 [facility] Levothyroxine Sodium 0.1 MG Oral Tablet take 1 tablet by oral route every day ORAL Active 05/25/2013 [facility] potassium 99 mg tablet take 1 Tablet by Oral route every day ORAL Active [facility] Misc Drug Fibrovan 1 tab po TID Active [facility] Allergies, Adverse Reactions, Alerts No [...] palpitations, SOB, tremor and weight loss. 07/20/2013 [facility] Discharge Summaries No Data Provided for This Section History and Physicals No Data Provided for This Section Vital Signs Vital Sign Value Date Comments Source Body height 65.00 [in_us] 07/20/2013 [place] [facility] Body Weight (Measured) 274.40 [lb_av] 07/20/2013 [facility] Body mass index 45.66 kg/meter (2) 07/20/2013 [facility] Body height 65.00 [in_us] 05/25/2013 [facility] Body Weight (Measured) 273.00 [lb_av] 05/25/2013 [facility] Intravascular Systolic 138 mm[ Hg] [facility] Diastolic 90 mm[ Hg] [facility] Heart Beat 76 /min [facility]/25[facility] Body mass index 45.42 kg/meter (2) [facility] Body height 65.00 [in_us] 05/01/2013 [place] [facility] Intravascular Systolic 130 mm[ Hg] 05/01/2013 [facility] Intrav[facility] Diastolic 98 mm[ Hg] 05/01/2013 [facility] Heart Beat 68 /min [facility]01/[facility] Body height 65.00 [in_us] 04/19/2013 [place] Body Weight (Measured) 274.20 [lb_av] 04/19/2013 [facility] Intravascular Systolic 138 mm[ Hg] 04/19/2013 [facility] Intravascular Diastolic 98 mm[ Hg] 04/19/2013 [facility] Heart Beat 110 /min 04/19/2013 [facility] Body mass index 45.80 kg/meter (2) 04/19/2013 [place] [facility] Encounters Location Location Details Encounter Type Encounter Number Reason For Visit Attending Provider ADM Date DC Date Status Source [facility] [id number] _MAPID:[id number]_0 Naz Booker ck 07/20/2013 07/20/2013 [facility] [id number] Debbie Benavides 06/08/2013 06/08/2013 [facility] Endocrinology And Diabetes [id number] Debbie Benavides 05/28/2013 05/28/2013 [facility] Endocrinology And Diabetes [id number] _MAPID:Encounter_3 Debbie Pa tel 05/25/2013 05/25/2013 [facility] Maritza zuluaga [facility] [id number] Jaycee Lino MD 05/03/2013 05/03/2013 [facility] [id number] Jaycee Lino MD 05/01/2013 05/01/2013 [facility] [id number] EMELIA LINO MD 04/27/2013 04/27/2013 Active [facility] [id number] Joann Daniels MD 04/27/2013 04/27/2013 [facility] [id number] Jaycee Lino MD 04/26/2013 04/26/2013 [facility] [id number] Jaycee Lino MD 04/19/2013 04/19/2013 [facility] Procedures Procedure Code Date Perfomer Comments Source ND New Patient 07/20/2013 [facility] Office consultation 05/25/2013 [facility] OFFICE/OUTPATIENT VISIT, EST 05/01/2013 [facility] ECG monitor/review, 24 hrs 04/30/2013 [facility] TTE W/DOPPLER, COMPLETE [facility]27[facility] monitor/record, 24 hrs (holter Recording) 04/26/2013 [place] [facility] Office/outpatient visit, new [facility]19/[facility] Plan of Care Plan of Care Date Source DateTypeActionStatus Future Order: Lab Order T4, FREE (CPT [id number]) (866) Ordered Future Order: Lab Order TSH, 3RD GENERATION (CPT [id number]) (899) Ordered DateTypeProblemGoalInterventionStatusStart Date Unknown. 07/20/2013 [facility] Social History Social History [...] Use Status Unknown Smoking Status Unknown [facility]/20[facility] Assessment and Plan No Data Provided for This Section Family History Value Date S ource Family MemberDiagnosisAge At Onset Sister Sudden infant syndrome Paternal Grandmother Hypertension Paternal Grandmother Diabetes I 07/20/2013 [facility] Advance Directives No Data Provided for This Section Functional Status No Data Provided for This Section
== END 2019-02-11 10:17 | disposition home or self-care (01) ==
LOC: EDUNIT# 12:11 → ER 12:12 → 4TH 18:00 → UNDOADMOB 18:00 → 4TH 18:41 → UNDODISOB 02-11 11:45
PROVIDERS: ADMIT Family Medicine; ATTEND Family Medicine
DX: A87.9 Viral meningitis, unspecified (principal); I10 Essential (primary) hypertension; E03.9 Hypothyroidism, unspecified; E87.6 Hypokalemia; R74.0 Nonspecific elevation of levels of transaminase and lactic acid dehydrogenase [LDH]; Z79.891 Long term (current) use of opiate analgesic; Z91.040 Latex allergy status; Z91.018 Allergy to other foods; Z79.899 Other long term (current) drug therapy; E06.3 Autoimmune thyroiditis
CPT/HCPCS: 36415; 70450; 71045; 80048; 80053; 81000; 82945; 83735; 84157; 84703; 85025; 85027; 85652; 87070; 87205; 89051; 93005; 96361; 96374; 96375; 96376

== ENCOUNTER 2022-05-30 06:06 | Emergency (ER) | payer OTHER ==
[~2022-05-30 06:06] MED LIST changes: +AMLO-251 PO; -AMLO10TA7 PO; +HYDR-4226 PO
[2022-05-30] MEDS ORDERED: FAMOTIDINE 20MG/2ML IV (PEPCID) IV STA (06:24)
[2022-05-30] MEDS ORDERED: PROMETHAZINE INJ 25 MG/ML (PHENERGAN) AMP IVP STA (06:24)
--- NOTE | 2022-05-30 06:27 | ED GI ---
General Chief Complaint: Abdominal/GI Problems Stated Complaint: SYNCOPE History of Present Illness Date Seen by Provider: May 30, 2022 Time Seen by Provider: 06:16 Initial Comments 36-year-old female with no significant PMH, is here with complaints of 1 episode of nausea and vomiting, 3 episodes of diarrhea, and generalized abdominal pain which began soon after she had [employer] for dinner yesterday evening. Pain is cramping and colicky in nature, and is generalized. Patient describes it as really bad feeling to poop. Denies fever and chills, constipation, chest pain, palpitations, dysuria. (SAMUEL GAUTHIER MD) Allergies and Home Medications Allergies Coded Allergies: latex (Verified Allergy, Mild, 11/02/15) orange (Verified Allergy, Mild, 11/02/15) Patient Home Medication List Home Medication List Reviewed: Yes (SAMUEL GAUTHIER MD) Amlodipine Besylate (Amlodipine Besylate) 10 Mg Tablet, 5 MG PO DAILY, (Reported) Entered as Reported by: MICHAEL JACOBO on 11/03/15 1100 Famotidine (Famotidine) 20 Mg Tablet, 20 MG PO DAILY Prescribed by: STACEY HARVEY on 05/30/22 0753 Hydrocodone/Acetaminophen (Hydrocodone/Acetaminophen 5 MG/325 MG TAB) 1 Each Tablet, 1 TAB PO Q4-6HR Prescribed by: ANGELA RHOADES on 02/11/19 1018 Ondansetron (Ondansetron Odt) 4 Mg Tab.rapdis, 4 MG PO Q4H PRN for NAUSEA/VOMITING-1ST LINE Prescribed by: ANTONELLA FANG on 02/08/19 1321 Promethazine HCl (Promethazine Tablet) 25 Mg Tablet, 25 MG PO Q6H PRN for NAUSEA/VOMITING Prescribed by: STACEY HARVEY on 05/30/22 0750 Review of Systems Review of Systems Constitutional: no symptoms reported EENTM: No Symptoms Reported Respiratory: No Symptoms Reported Cardiovascular: No Symptoms Reported Gastrointestinal: Abdominal Pain, Diarrhea, Nausea, Vomiting Genitourinary: No Symptoms Reported Musculoskeletal: no symptoms reported Skin: no symptoms reported Psychiatric/Neurological: No Symptoms Reported Endocrine: No Symptoms Reported Hematologic/Lymphatic: No Symptoms Reported (SAMUEL GAUTHIER MD) Past Wxzjbvu-Iqsfce-Njzrcj Hx Patient Social History Tobacco Use?: No Use of E-Cig and/or Vaping dev: No Substance use?: No Alcohol Use?: No Pt feels they are or have been: No (SAMUEL GAUTHIER MD) Immunizations Up To Date Tetanus Booster (TDap): Unknown PED Vaccines UTD: No (SAMUEL GAUTHIER MD) Seasonal Allergies Seasonal Allergies: No (SAMUEL GAUTHIER MD) Past Medical History Surgeries: Yes (ERCP) Section Respiratory: No Currently Using CPAP: No Currently Using BIPAP: No Cardiac: Yes (recurrent episodes of near syncope and syncope) Hypertension Neurological: No Reproductive Disorders: Yes (HELLP syndrome) Female Reproductive Disorders: Menstrual Problems Sexually Transmitted Disease: No HIV/AIDS: No Genitourinary: No Gastrointestinal: No Musculoskeletal: No Endocrine: Yes (HASHIMOTOS) Hypothyroidsim HEENT: No Loss of Vision: Denies Hearing Impairment: Denies Cancer: No Psychosocial: No Integumentary: No Blood Disorders: Yes (HELLP syndrome) Adverse Reaction/Blood Tranf: No (SAMUEL GAUTHIER MD) Family Medical History Patient reports no known family medical history. No Pertinent Family Hx (SAMUEL GAUTHIER MD) Physical Exam Vital Signs Vital Signs - First Documented 05/30/22 06:07 Temp 35.7 Pulse 62 Resp 18 B/P (MAP) 150/88 (108) Pulse Ox 100 O2 Delivery Room Air (STACEY HARVEY MD) Vital Signs Capillary Refill : (SAMUEL GAUTHIER MD) Height/Weight/BMI Height: 5'5.00" Weight: 234lbs. 0.0oz. 106.605844jq; 41.08 BMI Method:Stated General Appearance: WD/WN, mild distress HEENT: PERRL/EOMI Neck: non-tender, full range of motion Respiratory: chest non-tender, lungs clear, normal breath sounds Cardiovascular: regular rate, rhythm Gastrointestinal: normal bowel sounds, soft, no organomegaly, tenderness (Generalized) Extremities: normal range of motion Back: normal inspection, no CVA tenderness Neurologic/Psychiatric: alert, oriented x 3 Skin: normal color (SAMUEL GAUTHIER MD) Progress/Results/Core Measures Results/Orders Lab Results Laboratory Tests Test 05/30/22 06:18 05/30/22 07:22 Range/Units White Blood Count 7.7 4.3-11.0 10^3/uL Red Blood Count 4.11 3.80-5.11 10^6/uL Hemoglobin 12.5 11.5-16.0 g/dL Hematocrit 37 35-52 % Mean Corpuscular Volume 90 80-99 fL Mean Corpuscular Hemoglobin 30 25-34 pg Mean Corpuscular Hemoglobin Concent 34 32-36 g/dL Red Cell Distribution Width 12.6 10.0-14.5 % Platelet Count 214 130-400 10^3/uL Mean Platelet Volume 11.2 9.0-12.2 fL Immature Granulocyte % (Auto) 0 % Neutrophils (%) (Auto) 86 H 42-75 % Lymphocytes (%) (Auto) 11 L 12-44 % Monocytes (%) (Auto) 3 0-12 % Eosinophils (%) (Auto) 0 0-10 % Basophils (%) (Auto) 0 0-10 % Neutrophils # (Auto) 6.6 1.8-7.8 10^3/uL Lymphocytes # (Auto) 0.8 L 1.0-4.0 10^3/uL Monocytes # (Auto) 0.2 0.0-1.0 10^3/uL Eosinophils # (Auto) 0.0 0.0-0.3 10^3/uL Basophils # (Auto) 0.0 0.0-0.1 10^3/uL Immature Granulocyte # (Auto) 0.0 0.0-0.1 10^3/uL Neutrophils % (Manual) 85 % Lymphocytes % (Manual) 14 % Monocytes % (Manual) 1 % Sodium Level 132 L 135-145 MMOL/L Potassium Level 4.7 3.6-5.0 MMOL/L Chloride Level 99 98-107 MMOL/L Carbon Dioxide Level 23 21-32 MMOL/L Anion Gap 10 5-14 MMOL/L Blood Urea Nitrogen 20 H 7-18 MG/DL Creatinine 0.74 0.60-1.30 MG/DL Estimat Glomerular Filtration Rate 109 BUN/Creatinine Ratio 27 Glucose Level 150 H 70-105 MG/DL Calcium Level 8.7 8.5-10.1 MG/DL Corrected Calcium 8.6 8.5-10.1 MG/DL Total Bilirubin 0.6 0.1-1.0 MG/DL Aspartate Amino Transf (AST/SGOT) 39 H 5-34 U/L Alanine Aminotransferase (ALT/SGPT) 20 0-55 U/L Alkaline Phosphatase 48 40-136 U/L Total Protein 7.4 6.4-8.2 GM/DL Albumin 4.1 3.2-4.5 GM/DL Urine Color YELLOW Urine Clarity CLEAR Urine pH 7.0 5-9 Urine Specific [place] 1.025 H 1.016-1.022 Urine Protein NEGATIVE NEGATIVE Urine Glucose (UA) NEGATIVE NEGATIVE Urine Ketones 3+ H NEGATIVE Urine Nitrite NEGATIVE NEGATIVE Urine Bilirubin NEGATIVE NEGATIVE Urine Urobilinogen 0.2 < = 1.0 MG/DL Urine Leukocyte Esterase NEGATIVE NEGATIVE Urine RBC (Auto) NEGATIVE NEGATIVE Urine RBC 2-5 H /HPF Urine WBC NONE /HPF Urine Squamous Epithelial Cells 2-5 /HPF Urine Crystals NONE /LPF Urine Bacteria TRACE /HPF Urine Casts NONE /LPF Urine Mucus SMALL H /LPF Urine Culture Indicated NO Urine Opiates Screen NEGATIVE NEGATIVE Urine Oxycodone Screen NEGATIVE NEGATIVE Urine Methadone Screen NEGATIVE NEGATIVE Urine Propoxyphene Screen NEGATIVE NEGATIVE Urine Barbiturates Screen NEGATIVE NEGATIVE Ur Tricyclic Antidepressants Screen NEGATIVE NEGATIVE Urine Phencyclidine Screen NEGATIVE NEGATIVE Urine Amphetamines Screen NEGATIVE NEGATIVE Urine Methamphetamines Screen NEGATIVE NEGATIVE Urine Benzodiazepines Screen NEGATIVE NEGATIVE Urine Cocaine Screen NEGATIVE NEGATIVE Urine Cannabinoids Screen NEGATIVE NEGATIVE (STACEY HARVEY MD) My Orders Orders - STACEY HARVEY MD Ns Iv 1000 Ml (Sodium Chloride 0.9%) (05/30/22 07:24) Orthostatic Vital Signs (Adult (05/30/22 07:24) Urine Bedside (05/30/22 07:25) (STACEY HARVEY MD) Vital Signs/I&O 05/30/22 05/30/22 06:07 07:28 Temp 35.7 Pulse 62 82 81 93 Resp 18 B/P (MAP) 150/88 (108) 126/65 (85) 121/73 (89) 118/63 (81) Pulse Ox 100 O2 Delivery Room Air (STACEY HARVEY MD) Progress Progress Note : Progress Note 1. FOOD POISONING: ACUTE GASTROENTERITIS: - CBC/ CMP - Pepcid 20mg iv/ Phenergan 25mg iv STAT - Reassurance, self-limited - Advised [id number] Pepcid daily for the next few days -Follow-up with PCP in the next 3 to 5 days - Sign out to day physician for follow up of labs -The patient was seen in the ED, and treated appropriately to presentation at a specific point in time. Patient is informed that there is a possibility that disease and illness can evolve and change in acuity rapidly or slowly after patient is discharged from the ER. Precautionary advice given to the patient for immediate return to ER if symptoms worsen or do not resolve, and to seek emergency care sooner rather than later. Pt also advised on the importance of PCP follow up and compliance with management and follow up plan with PCP and/or specialist, as this is part of the management plan. Pt verbally expressed understanding. (SAMUEL GAUTHIER MD) Progress Note #1: Time: 07:00 Progress Note I assumed care of the patient from Dr. Gauthier at shift change. Patient was waiting on comprehensive metabolic profile results and to provide a Urine specimen. Her complete blood count does not show acute significant abnormality as her WBC count is 7.7 so not elevated or too low to indicate severe infection. Hemoglobin is not showing anemia at 12.5. 0733 Patient able to provide urine specimen but reports she was still feeling dizzy with changing positions. Urine was kale colored but did not appear super concentrated just by looking at the color of it. Sent to lab for testing as ordered by Dr. Gauthier for a Urinalysis and urine drug screen. I added a urine bedside test as I did not know if patient was still having menstrual periods or not. It came back negative. I also added orthostatic vital signs order to see if patient was tilting with changing positions to help determine if she could be discharged to home with nausea medicine or if she might need admit for additional hydration and continued treatment for nausea/vomiting and diarrhea. Will provide an additional 1 L NS here in the ED since she reports she was feeling dizzy with getting up to go to the bathroom. 0739 Orthostatic vital signs were stable without acute significant change of more than 20 points on blood pressure or heart rate. However, with her symptomatic with dizziness with changing positions will provide the additional Liter of NS IVF bolus as ordered. Her comprehensive metabolic profile did not show acute significant abnormality with her electrolytes, renal function or hepatic function to indicate hyponatremia, hypokalemia, acute renal failure, acute hepatic failure or hepatitis. Her BUN was just above normal limits at 20 to go with some mild dehydration. Glucose elevated to 150 but unsure when she last tried sipping on any fluids or food. Urinalysisi shows it is slightly concentrated at 1.025 specific gravity and she has 3+ ketones to go with dehydration. No Nitrites, LE or WBC and Bacteria to indicate UTI. Will anticipate discharge to home after the additional 1 Liter NS IVF bolus I ordered, to rest and follow a liquid diet for at least 24 hours to help her stomach settle down. She reports an allergy to ondansetron so will prescribe promethazine for home and encourage famotidine as recommended by Dr. Gauthier. Progress Note #2: Time: 07:50 Progress Note Urine drug screen is negative for all substances tested. We will proceed with discharge as outlined above. Patient has had no vomiting or diarrhea here in the ED after arrival and treatment with medicine. Counseled on follow-up and return precautions. Advised to follow a liquid diet for at least 24 hours. May use famotidine 20 mg daily for the next week. This would help with gastritis. Sent prescription for promethazine 25 mg p.o. every 6 hours as needed nausea and vomiting #8 for the next 2 days. (STACEY HARVEY MD) Departure Impression Primary Impression: Food poisoning Additional Impressions: Gastroenteritis Dehydration Disposition: 01 HOME, SELF-CARE Condition: Stable Departure-Patient Inst. Decision time for Depature: 07:52 (STACEY HARVEY MD) Referrals: SHE SIBLEY DO (PCP/Family) Primary Care Physician Patient Instructions: Food Poisoning, Viral Gastroenteritis, Adult (DC), Food Poisoning ED, Dehydration, Adult ED Add. Discharge Instructions: - Reassurance, self-limited condition that will resolve on it's own in a short period of time. - Advised [id number] Pepcid daily for the next few days -Adequate fluid intake advised -Follow-up with PCP in the next 3 to 5 days -May use Promethazine 25 mg every 6 hours as needed for nausea/vomiting. This can make you drowsy so do not drive while taking it. -Follow a liquid diet for at least the next 24 hours to help with hydration and be easier on your stomach and gut. All discharge instructions reviewed with patient and/or family. Voiced understanding. Scripts Famotidine (Famotidine) 20 Mg Tablet 20 MG PO DAILY for Gastritis for 7 Days, #7 TAB 0 Refills Prov: STACEY HARVEY MD 05/30/22 Promethazine HCl (Promethazine Tablet) 25 Mg Tablet 25 MG PO Q6H PRN for NAUSEA/VOMITING for 2 Days, #8 TAB 0 Refills Prov: STACEY HARVEY MD 05/30/22 SAMUEL GAUTHIER MD May 30, 2022 06:27 STACEY HARVEY MD May 30, 2022 07:42
[2022-05-30] MEDS ORDERED: FAMOTIDINE 20MG/2ML IV (PEPCID) ONE (06:30)
[2022-05-30] MEDS ORDERED: PROMETHAZINE INJ 25 MG/ML (PHENERGAN) AMP ONE (06:30)
[2022-05-30 06:57] LABS: BASOPHILS % (AUTO) 0 % (0-10); EOSINOPHILS % (AUTO) 0 % (0-10); HEMATOCRIT 37 % (35-52); HEMOGLOBIN 12.5 g/dL (11.5-16.0); LYMPHOCYTES # (AUTO) 0.8 10^3/uL (1.0-4.0); LYMPHOCYTES % (AUTO) 11 % (12-44); MEAN CORPUSCULAR HEMOGLOBIN 30 pg (25-34); MEAN CORPUSCULAR HGB CONC 34 g/dL (32-36); MEAN CORPUSCULAR VOLUME 90 fL (80-99); MEAN PLATELET VOLUME 11.2 fL (9.0-12.2); MONOCYTES # (AUTO) 0.2 10^3/uL (0.0-1.0); MONOCYTES % (AUTO) 3 % (0-12); NEUTROPHILS # (AUTO) 6.6 10^3/uL (1.8-7.8); NEUTROPHILS % (AUTO) 86 % (42-75); PLATELET COUNT 214 10^3/uL (130-400); WHITE BLOOD COUNT 7.7 10^3/uL (4.3-11.0)
[2022-05-30 07:09] LABS: LYMPHOCYTES % (MANUAL) 14 %; MONOCYTES % (MANUAL) 1 %; NEUTROPHILS % (MANUAL) 85 %
[2022-05-30 07:20] LABS: ALBUMIN 4.1 GM/DL (3.2-4.5); BILIRUBIN,TOTAL 0.6 MG/DL (0.1-1.0); CALCIUM 8.7 MG/DL (8.5-10.1); CREATININE SERUM 0.74 MG/DL (0.60-1.30); POTASSIUM 4.7 MMOL/L (3.6-5.0); TOTAL PROTEIN 7.4 GM/DL (6.4-8.2)
[2022-05-30] MEDS ORDERED: NS IV 1000 ML 1,000 ML IV STA (07:24)
[2022-05-30 07:28] VITALS: BP_SYST 118; BP_SYST 121; BP_SYST 126; BP_DIAS 63; BP_DIAS 65; BP_DIAS 73
[2022-05-30 07:32] LABS: BILIRUBIN,URINE NEGATIVE (NEGATIVE); CLARITY,URINE CLEAR; COLOR,URINE YELLOW; GLUCOSE, URINE (UA) NEGATIVE (NEGATIVE); KETONES,URINE 3+ (NEGATIVE); LEUKOCYTE ESTERASE ,URINE NEGATIVE (NEGATIVE); NITRITE,URINE NEGATIVE (NEGATIVE); PROTEIN,URINE NEGATIVE (NEGATIVE)
[2022-05-30 07:33] LABS: BACTERIA,URINE TRACE /HPF
[2022-05-30 07:42] LABS: AMPHETAMINE SCREEN, URINE NEGATIVE (NEGATIVE); BARBITURATE SCREEN URINE NEGATIVE (NEGATIVE); BENZODIAZEPINES SCREEN URINE NEGATIVE (NEGATIVE); CANNABINOID SCREEN, URINE NEGATIVE (NEGATIVE); COCAINE SCREEN URINE NEGATIVE (NEGATIVE); METHADONE STAT NEGATIVE (NEGATIVE); OPIATE SCREEN URINE NEGATIVE (NEGATIVE); OXYCODONE STAT NEGATIVE (NEGATIVE); PROPOXYPHENE STAT NEGATIVE (NEGATIVE); TRICYCLIC ANTIDEPRESSANTS SCRE NEGATIVE (NEGATIVE)
[2022-05-30] MEDS ORDERED: PROM25TA14 PO (07:50)
[2022-05-30] MEDS ORDERED: FAMO20TA5 PO ×2 (07:50→07:53)
== END 2022-05-30 08:35 | disposition home or self-care (01) ==
LOC: EDUNIT# 06:06 → ER FS 06:09
DX: A05.9 Bacterial foodborne intoxication, unspecified (principal); E86.0 Dehydration; R73.9 Hyperglycemia, unspecified; Z91.040 Latex allergy status; Z28.310 Unvaccinated for COVID-19
CPT/HCPCS: 36415; 80053; 80306; 81000; 84703; 85007; 85027

== ENCOUNTER 2023-02-04 22:31 | Emergency (ER) | payer OTHER ==
[~2023-02-04] VITALS: Ht 165.1 cm; Wt 109.7 kg
[~2023-02-04 22:31] MED LIST changes: +FAMO20TA5 PO; +PROM25TA14 PO
--- NOTE | 2023-02-04 22:48 | ED GU-Female ---
General Stated Complaint: OB, POSS MISCARRIAGE Source: patient, EMS Exam Limitations: no limitations History of Present Illness Date Seen by Provider: Feb 04, 2023 Time Seen by Provider: 22:31 Initial Comments 37yoF at 10 weeks EGA by first trimester ultrasound coming in via EMS due to concerns for a miscarriage. She thought she was going to the bathroom, and had significant bleeding. She estimates roughly 4 cups of blood. She states after the initial bleeding, she filled a pad in roughly 5 minutes. She has not she saw tissue as well and she brought it with her. He is not having any pain at this time. This has been a healthy thus far. She has had 1 miscarriage before, 1 , and that was complicated by severe HELLP syndrome. Allergies and Home Medications Allergies Coded Allergies: latex (Verified Allergy, Mild, 11/02/15) orange (Verified Allergy, Mild, 11/02/15) Patient Home Medication List Home Medication List Reviewed: Yes Amlodipine Besylate (Amlodipine Besylate) 10 Mg Tablet, 5 MG PO DAILY, (Reported) Entered as Reported by: MICHAEL JACOBO on 11/03/15 1100 Famotidine (Famotidine) 20 Mg Tablet, 20 MG PO DAILY Prescribed by: STACEY Webster ENYART on 05/30/22 0753 Hydrocodone/Acetaminophen (Hydrocodone/Acetaminophen 5 MG/325 MG TAB) 1 Each Tablet, 1 TAB PO Q4-6HR Prescribed by: ANGELA RHOADES on 02/11/19 1018 Ondansetron (Ondansetron Odt) 4 Mg Tab.rapdis, 4 MG PO Q4H PRN for NAUSEA/VOMITING-1ST LINE Prescribed by: ANTONELLA FANG on 02/08/19 1321 Promethazine HCl (Promethazine Tablet) 25 Mg Tablet, 25 MG PO Q6H PRN for NAUSEA/VOMITING Prescribed by: STACEY PAYNEYART on 05/30/22 0750 Review of Systems Review of Systems Constitutional: No fever EENTM: no symptoms reported Respiratory: no symptoms reported Cardiovascular: no symptoms reported Gastrointestinal: no symptoms reported Genitourinary: see HPI Musculoskeletal: no symptoms reported Skin: no symptoms reported Psychiatric/Neurological: No Symptoms Reported Endocrine: No Symptoms Reported Past Rlnkhms-Psowpe-Lsaeoo Hx Immunizations Up To Date Tetanus Booster (TDap): Unknown PED Vaccines UTD: No Seasonal Allergies Seasonal Allergies: No Past Medical History Surgeries: Yes (ERCP) Section Respiratory: No Currently Using CPAP: No Currently Using BIPAP: No Cardiac: Yes (recurrent episodes of near syncope and syncope) Hypertension Neurological: No Reproductive Disorders: Yes (HELLP syndrome) Female Reproductive Disorders: Menstrual Problems Sexually Transmitted Disease: No HIV/AIDS: No Genitourinary: No Gastrointestinal: No Musculoskeletal: No Endocrine: Yes (HASHIMOTOS) Hypothyroidsim HEENT: No Loss of Vision: Denies Hearing Impairment: Denies Cancer: No Psychosocial: No Integumentary: No Blood Disorders: Yes (HELLP syndrome) Adverse Reaction/Blood Tranf: No Family Medical History Patient reports no known family medical history. No Pertinent Family Hx Physical Exam Vital Signs Vital Signs - First Documented 02/04/23 22:31 Temp 37.0 Pulse 84 Resp 18 B/P (MAP) 159/99 (119) Pulse Ox 100 O2 Delivery Room Air Capillary Refill : Height, Weight, BMI Height: 5'5.00" Weight: 234lbs. 0.0oz. 106.033757wb; 41.08 BMI Method:Stated General Appearance: WD/WN, no apparent distress HEENT: PERRL/EOMI, normal ENT inspection, pharynx normal Neck: non-tender, full range of motion, supple, normal inspection Cardiovascular: regular rate, rhythm, no edema, no murmur Respiratory: chest non-tender, lungs clear, normal breath sounds, no respiratory distress, no accessory muscle use Gastrointestinal: normal bowel sounds, non tender, soft; No distended, No g uarding, No rebound Back: normal inspection, no CVA tenderness Extremities: normal range of motion, non-tender, normal inspection, no pedal edema, no calf tenderness, normal capillary refill Neurologic/Psychiatric: no motor/sensory deficits, alert, normal mood/affect Skin: normal color, warm/dry Progress/Results/Core Measures Suspected Sepsis SIRS Temperature: Pulse: Respiratory Rate: Laboratory Tests 02/04/23 22:50: White Blood Count 9.8 Blood Pressure / Mean: Laboratory Tests 02/04/23 22:50: Creatinine 0.59L, INR Comment 1.0, Platelet Count 220, Total Bilirubin 0.2 Results/Orders Lab Results Laboratory Tests Test 02/04/23 22:50 Range/Units White Blood Count 9.8 4.3-11.0 10^3/uL Red Blood Count 3.41 L 3.80-5.11 10^6/uL Hemoglobin 10.5 L 11.5-16.0 g/dL Hematocrit 31 L 35-52 % Mean Corpuscular Volume 92 80-99 fL Mean Corpuscular Hemoglobin 31 25-34 pg Mean Corpuscular Hemoglobin Concent 33 32-36 g/dL Red Cell Distribution Width 12.4 10.0-14.5 % Platelet Count 220 130-400 10^3/uL Mean Platelet Volume 11.0 9.0-12.2 fL Immature Granulocyte % (Auto) 0 % Neutrophils (%) (Auto) 65 42-75 % Lymphocytes (%) (Auto) 26 12-44 % Monocytes (%) (Auto) 7 0-12 % Eosinophils (%) (Auto) 1 0-10 % Basophils (%) (Auto) 1 0-10 % Neutrophils # (Auto) 6.4 1.8-7.8 10^3/uL Lymphocytes # (Auto) 2.5 1.0-4.0 10^3/uL Monocytes # (Auto) 0.7 0.0-1.0 10^3/uL Eosinophils # (Auto) 0.1 0.0-0.3 10^3/uL Basophils # (Auto) 0.1 0.0-0.1 10^3/uL Immature Granulocyte # (Auto) 0.0 0.0-0.1 10^3/uL Prothrombin Time 13.5 12.2-14.7 SEC INR Comment 1.0 0.8-1.4 Activated Partial Thromboplast Time 24 24-35 SEC Sodium Level 137 135-145 MMOL/L Potassium Level 3.7 3.6-5.0 MMOL/L Chloride Level 103 98-107 MMOL/L Carbon Dioxide Level 26 21-32 MMOL/L Anion Gap 8 5-14 MMOL/L Blood Urea Nitrogen 12 7-18 MG/DL Creatinine 0.59 L 0.60-1.30 MG/DL Estimat Glomerular Filtration Rate 120 BUN/Creatinine Ratio 20 Glucose Level 104 70-105 MG/DL Calcium Level 8.9 8.5-10.1 MG/DL Corrected Calcium 9.0 8.5-10.1 MG/DL Magnesium Level 2.1 1.6-2.4 MG/DL Total Bilirubin 0.2 0.1-1.0 MG/DL Aspartate Amino Transf (AST/SGOT) 23 5-34 U/L Alanine Aminotransferase (ALT/SGPT) 58 H 0-55 U/L Alkaline Phosphatase 45 40-136 U/L Total Protein 6.7 6.4-8.2 GM/DL Albumin 3.9 3.2-4.5 GM/DL Lipase 45 8-78 U/L Human Chorionic Gonadotropin, Quant [id number] H <5 MIU/ML My Orders Orders - LENORA DUVAL MD Cbc And Automated Diff (02/04/23 22:41) Comprehensive Metabolic Panel (02/04/23 22:41) Hcg,Quantitative (02/04/23:) Lipase (02/04/23:41) Magnesium (02/04/23:41) Protime With Inr (02/04/23:41) Partial Thromboplastin Time (02/04/23:41) Ua Culture If Indicated (02/04/23:41) Abo Rh Type (02/04/23:41) Ed Iv/Invasive Line Start (02/04/23 22:41) LDH (02/04/23 22:50) Ed Admission (Communication) (02/04/23 23:54) Vital Signs/I&O 02/04/23 22:31 Temp 37.0 Pulse 84 Resp 18 B/P (MAP) 159/99 (119) Pulse Ox 100 O2 Delivery Room Air Capillary Refill : Progress Note : Progress Note 37-year-old female with above history coming in due to vaginal bleeding during . ABCs were intact and vitals were stable on presentation. She did have significant bleeding clinically on external exam. I did a pelvic, and was able to remove quite a bit of blood clots in her vaginal vault, and she had a constant trickle of blood from her cervix which was slightly open. She did bring what appears to be products of conception which we will send for pathology. I did a [id number] ultrasound, and she does have what appears to be a fetus in her uterus. I saw what appeared to be movements, I was unable to really see much of a heart rate, likely due to size versus the movement could have been false. An IV was placed and basic labs were obtained and were significant for hemoglobin above 10, normal platelets, essentially normal LFTs, normal lipase, normal creatinine, normal platelet count, very elevated beta-hCG which is expected. I contacted Dr. Araujo, the OB on-call. She will need the patient under observation status due to the significant bleeding to make sure she slows down. Ultrasound will be ordered for the morning. Type and screen was also ordered to be done when she arrives in [place]. Of note, the patient's bleeding did slow down after a little bit of observation in the ER and after that she would like to go to the hospital via private vehicle instead of ambulance which I think would be okay. She can call 911 if bleeding increases and she is concerned. Departure Impression Primary Impression: Incomplete miscarriage Disposition: 30 STILL A PATIENT Condition: Stable Admissions Decision to Admit/Date: Feb 04, 2023 Time/Decision to Admit Time: 23:40 Transfer Transfer Facility: [facility] [place] Method of Transfer: Private Vehicle Departure-Patient Inst. Referrals: ANITRA GASTELUM DO (PCP) Primary Care Physician LENORA DUVAL MD Feb 04, 2023 22:48
[2023-02-04 23:08] LABS: BASOPHILS # (AUTO) 0.1 10^3/uL (0.0-0.1); BASOPHILS % (AUTO) 1 % (0-10); EOSINOPHILS # (AUTO) 0.1 10^3/uL (0.0-0.3); EOSINOPHILS % (AUTO) 1 % (0-10); HEMATOCRIT 31 % (35-52); HEMOGLOBIN 10.5 g/dL (11.5-16.0); LYMPHOCYTES # (AUTO) 2.5 10^3/uL (1.0-4.0); LYMPHOCYTES % (AUTO) 26 % (12-44); MEAN CORPUSCULAR HEMOGLOBIN 31 pg (25-34); MEAN CORPUSCULAR HGB CONC 33 g/dL (32-36); MEAN CORPUSCULAR VOLUME 92 fL (80-99); MONOCYTES # (AUTO) 0.7 10^3/uL (0.0-1.0); MONOCYTES % (AUTO) 7 % (0-12); NEUTROPHILS # (AUTO) 6.4 10^3/uL (1.8-7.8); NEUTROPHILS % (AUTO) 65 % (42-75); PLATELET COUNT 220 10^3/uL (130-400); WHITE BLOOD COUNT 9.8 10^3/uL (4.3-11.0)
[2023-02-04 23:19] LABS: PROTHROMBIN TIME PATIENT 13.5 SEC (12.2-14.7)
[2023-02-04 23:39] LABS: ALBUMIN 3.9 GM/DL (3.2-4.5); BILIRUBIN,TOTAL 0.2 MG/DL (0.1-1.0); CALCIUM 8.9 MG/DL (8.5-10.1); CREATININE SERUM 0.59 MG/DL (0.60-1.30); MAGNESIUM 2.1 MG/DL (1.6-2.4); POTASSIUM 3.7 MMOL/L (3.6-5.0); TOTAL PROTEIN 6.7 GM/DL (6.4-8.2)
[2023-02-05 00:20] VITALS: BP 163/98
== END 2023-02-05 00:20 | disposition still patient (30) ==
LOC: EDUNIT# 22:35 → ER FS 22:37
DX: O03.4 Incomplete spontaneous abortion without complication (principal); Z91.040 Latex allergy status
CPT/HCPCS: 36415; 80053; 83615; 83690; 83735; 84702; 85025; 85610; 85730; 86900; 86901

== ENCOUNTER 2023-02-05 00:56 | Observation (INO) | payer OTHER ==
[~2023-02-05] VITALS: Ht 165.1 cm; Wt 109.7 kg
[2023-02-05 01:11] VITALS: BP 159/79
[2023-02-05] MEDS ORDERED: ACETAMINOPHEN 500 MG TABLET PO PRN (01:45)
[2023-02-05 01:58] VITALS: BP 164/90
[2023-02-05 02:02] VITALS: BP 164/90
[2023-02-05 06:01] VITALS: BP 132/78
[2023-02-05 06:25] LABS: BASOPHILS # (AUTO) 0.1 10^3/uL (0.0-0.1); BASOPHILS % (AUTO) 1 % (0-10); EOSINOPHILS # (AUTO) 0.1 10^3/uL (0.0-0.3); EOSINOPHILS % (AUTO) 1 % (0-10); HEMATOCRIT 29 % (35-52); HEMOGLOBIN 9.6 g/dL (11.5-16.0); LYMPHOCYTES % (AUTO) 24 % (12-44); MEAN CORPUSCULAR HEMOGLOBIN 31 pg (25-34); MEAN CORPUSCULAR HGB CONC 33 g/dL (32-36); MEAN CORPUSCULAR VOLUME 92 fL (80-99); MEAN PLATELET VOLUME 10.9 fL (9.0-12.2); MONOCYTES # (AUTO) 0.5 10^3/uL (0.0-1.0); MONOCYTES % (AUTO) 6 % (0-12); NEUTROPHILS # (AUTO) 5.7 10^3/uL (1.8-7.8); NEUTROPHILS % (AUTO) 68 % (42-75); PLATELET COUNT 193 10^3/uL (130-400); WHITE BLOOD COUNT 8.3 10^3/uL (4.3-11.0)
[2023-02-05 09:10] VITALS: BP 141/92
--- NOTE | 2023-02-05 09:23 | History & Physical-OB ---
OB - Chief Complaint & HPI Date/Time Date of Admission: Date of Admission: Feb 05, 2023 at 00:56 Time Seen by a Provider: 09:15 Chief Complaint/History OB-Reason for Admission/Chief: vaginal bleeding Hx : 3 Hx Para: 1 Expected Date of Delivery: Aug 31, 2023 Gestational Age in Weeks: 10 Gestational Age in Days: 3 Other reason for admission: 37 year old at 10 weeks presented to the ER last night with heavy vaginal bleeding. She says that she had seen Dr. Vance earlier in the week and had a TV US that confirmed an IUP. ER physician could not verify cardiac activity and was concerned for incomplete due to heavy bleeding. Pt admitted overnight with minimal bleeding noted. US performed this AM. complicated by AMA, hypothyroidism, previous section, history of HELLP with delivery at 28 weeks, obesity in , CHTN. Allergies and Home Medications Allergies Coded Allergies: latex (Verified Allergy, Mild, 11/02/15) orange (Verified Allergy, Mild, 11/02/15) Patient Home Medication List Home Medication List Reviewed: Yes Amlodipine Besylate (Amlodipine Besylate) 10 Mg Tablet, 5 MG PO DAILY, (Reported) Entered as Reported by: MICHAEL JACOBO on 11/03/15 1100 Famotidine (Famotidine) 20 Mg Tablet, 20 MG PO DAILY Prescribed by: STACEY HARVEY on 05/30/22 0753 Hydrocodone/Acetaminophen (Hydrocodone/Acetaminophen 5 MG/325 MG TAB) 1 Each Tablet, 1 TAB PO Q4-6HR Prescribed by: ANGELA RHOADES on 02/11/19 1018 Ondansetron (Ondansetron Odt) 4 Mg Tab.rapdis, 4 MG PO Q4H PRN for NAUSEA/VOMITING-1ST LINE Prescribed by: ANTONELLA FANG on 02/08/19 1321 Promethazine HCl (Promethazine Tablet) 25 Mg Tablet, 25 MG PO Q6H PRN for NAUSEA/VOMITING Prescribed by: STACEY HARVEY on 05/30/22 0750 OB - History Hx of Present Care: Yes Ultrasounds: Abnormal US findings (US today reveals possible subchorionic h emorrhage) Obstetrical Complications: Other (history of HELLP with delivery at 28 weeks) Medical Complications: Cardiovascular (CHTN), Other (hypothyroidism) Obstetrical History Hx : 3 Hx Para: 1 Hx # Pregnancies: 1 Hx Total # of Abortions (Spona: 1 Hx Complication: Yes Delivery History Hx Section: Yes Hx Blood Disorders: Yes (HELLP syndrome) Adverse Rxn to Tranfusion: No Patient Past Medical History CHTN, hypothyroidism Social History/Family History Alcohol Use: Denies Use Recreational Drug Use: No Smoking Cessation: Never smoker 2nd Hand Smoke Exposure: No Immunizations Influenza Vaccine Up-to-Date: No; Not Current Hepatitis A: No Hepatitis B: Yes Tetanus Booster (TDap): Unknown OB - Admission Exam Physical Exam Vitals: Vital Signs 02/05/23 02/05/23 05:36 06:01 Temp 36.9 Pulse 71 Resp 20 B/P (MAP) 132/78 (96) Pulse Ox 100 O2 Delivery Room Air Abdomen: Non tender Extremities: Normal Heart Rate: 140's Labs Laboratory Tests Test 02/05/23 05:39 Range/Units White Blood Count 8.3 4.3-11.0 10^3/uL Red Blood Count 3.14 L 3.80-5.11 10^6/uL Hemoglobin 9.6 L 11.5-16.0 g/dL Hematocrit 29 L 35-52 % Mean Corpuscular Volume 92 80-99 fL Mean Corpuscular Hemoglobin 31 25-34 pg Mean Corpuscular Hemoglobin Concent 33 32-36 g/dL Red Cell Distribution Width 12.2 10.0-14.5 % Platelet Count 193 130-400 10^3/uL Mean Platelet Volume 10.9 9.0-12.2 fL Immature Granulocyte % (Auto) 0 % Neutrophils (%) (Auto) 68 42-75 % Lymphocytes (%) (Auto) 24 12-44 % Monocytes (%) (Auto) 6 0-12 % Eosinophils (%) (Auto) 1 0-10 % Basophils (%) (Auto) 1 0-10 % Neutrophils # (Auto) 5.7 1.8-7.8 10^3/uL Lymphocytes # (Auto) 2.0 1.0-4.0 10^3/uL Monocytes # (Auto) 0.5 0.0-1.0 10^3/uL Eosinophils # (Auto) 0.1 0.0-0.3 10^3/uL Basophils # (Auto) 0.1 0.0-0.1 10^3/uL Immature Granulocyte # (Auto) 0.0 0.0-0.1 10^3/uL OB - Assessment/Plan/Diagnosis Assessment Admission Dx Vaginal bleeding in -first trimester Admission Status: Observation Plan Plan: Other (blood type A+; discharge to home today. discussed pelvic rest) ELLIE FOLEY DO Feb 05, 2023 09:23
--- NOTE | 2023-02-05 09:29 | Discharge Inst-Women's Service ---
Discharge Inst-Women's Serv Consults/Follow Up Additional Follow Up: Yes (Dr. Vance/Karen next week- blood pressure check) Activity Activity: Activity as Tolerated Driving Instructions: You May Drive NO SMOKING: NO SMOKING Nothing Inside Vagina: No Douching, No [place], No Tampons Diet Discharge Diet: No Restrictions Return to The Hospital For: Heavy vaginal bleeding Symptoms to Report to DrJeff: Bleeding Excessive For Any Problems or Questions: Contact Your Physician ELLIE FOLEY DO Feb 05, 2023 09:29
--- NOTE | 2023-02-05 09:31 | Discharge Summary ---
Discharge Summary Hospital Course Problems Reviewed?: Yes Problems/Diagnosis: (1) Vaginal bleeding in Status: Acute (2) 10 weeks gestation of Status: Acute Hospital Course Date of Admission: Feb 05, 2023 at 00:56 Admission Diagnosis : Family Physician/Provider: Lance Singleton DO Date of Discharge: 02/05/23 Discharge Diagnosis: [ ] Hospital Course: [ ] Labs and Pending Lab Test: Laboratory Tests 02/05/23 05:39: White Blood Count 8.3, Red Blood Count 3.14L, Hemoglobin 9.6L, Hematocrit 29L, Mean Corpuscular Volume 92, Mean Corpuscular Hemoglobin 31, Mean Corpuscular Hemoglobin Concent 33, Red Cell Distribution Width 12.2, Platelet Count 193, Mean Platelet Volume 10.9, Immature Granulocyte % (Auto) 0, Neutrophils (%) (Auto) 68, Lymphocytes (%) (Auto) 24, Monocytes (%) (Auto) 6, Eosinophils (%) (Auto) 1, Basophils (%) (Auto) 1, Neutrophils # (Auto) 5.7, Lymphocytes # (Auto) 2.0, Monocytes # (Auto) 0.5, Eosinophils # (Auto) 0.1, Basophils # (Auto) 0.1, Immature Granulocyte # (Auto) 0.0 Home Meds Active Famotidine 20 Mg Tablet 20 Mg PO DAILY 7 Days Promethazine Tablet (Promethazine HCl) 25 Mg Tablet 25 Mg PO Q6H PRN 2 Days Hydrocodone/Acetaminophen 5 MG/325 MG TAB (Hydrocodone/Acetaminophen) 1 Each Tablet 1 Tab PO Q4-6HR MDD 10 TABS 5 Days Ondansetron Odt (Ondansetron) 4 Mg Tab.rapdis 4 Mg PO Q4H PRN Reported Amlodipine Besylate 10 Mg Tablet 5 Mg PO DAILY TAKES 1/2 OF A (10 MG) TABLET Activity: Activity as Tolerated Driving Instructions: You May Drive Nothing Inside Vagina: No Douching, No [employer], No Tampons Discharge Diet: No Restrictions Symptoms to Report to : Bleeding Excessive For Any Problems or Questions: Contact Your Physician Discharge Physical Examination Allergies: Coded Allergies: latex (Verified Allergy, Mild, 11/02/15) orange (Verified Allergy, Mild, 11/02/15) Vitals & I&Os Vital Signs Date Time Temp Pulse Resp B/P (MAP) Pulse Ox O2 Delivery O2 Flow Rate FiO2 02/05/23 06:01 132/78 (96) 02/05/23 05:36 36.9 71 20 100 Room Air General Appearance: No Apparent Distress Respiratory: No Accessory Muscle Use Gastrointestinal: Non Tender, Soft Extremity: Non Tender, No Pedal Edema Neurologic/Psychiatric: Alert, Normal Mood/Affect Discharge Summary Date of Admission Feb 05, 2023 at 00:56 Date of Discharge Supervisory-Addendum Brief Verification & Attestation Participated in pt care: history Personally performed: exam Care discussed with: other (n/a) Procedures: n/a Results interpretation: Verified all documentation n/a ELLIE FOLEY DO Feb 05, 2023 09:31
--- NOTE | 2023-02-05 10:07 | Diagnostic Imaging Report ---
HISTORY: Vaginal bleeding, , abdominal pain. COMPARISON: None. TECHNIQUE: Transabdominal and transvaginal ultrasound of the gravid uterus. FINDINGS: The cervix is measured at 4.9 cm with no funneling seen. There is a single live intrauterine gestation with a crown-rump length of 31.2 mm. The gestational mean sac diameter is 4.9 cm. Estimated gestational age is 10 weeks and 3 days with estimated date of delivery of 08/31/2023. The heart rate measures 172 BPM. A small yolk sac is seen. The ovaries are not well seen due to the gravid uterus. There appears to be an echogenic subchorionic hemorrhage measuring up to 3.2 cm involving about 20% of the sac circumference. No free fluid is seen. IMPRESSION: 1. Single live intrauterine gestation measuring at 10 weeks 3 days. 2. Small subchorionic hemorrhage. Dictated by: Dictated on workstation # [id number]
== END 2023-02-05 09:26 | disposition home or self-care (01) ==
LOC: WS 00:56 → UNDOADMOB 00:56 → WS 01:11 → UNDODISOB 09:26
PROVIDERS: ADMIT Obstetrics & Gynecology; ATTEND Obstetrics & Gynecology
DX: O20.9 Hemorrhage in early pregnancy, unspecified (principal); Z3A.10 10 weeks gestation of pregnancy
CPT/HCPCS: 76817; 85025; 86850; 86900; 86901; G0378; G0379; 36415